=== PATIENT | female | born 1950 | race Caucasian/White ===

== ENCOUNTER 2021-02-25 09:40 | Inpatient (IN) ==
--- NOTE | 2021-02-25 10:06 | Emergency Department Note ---
Impression & Plan Fracture of head of humerus, Fall, Elevated INR ED Provider Note NAME: MALACHI POLO AGE: 70 SEX: F : 1950 ARRIVES VIA: Walk-In INFORMANT: Patient ED PROVIDER(S): Kike Bullock DO CHIEF COMPLAINT: fall L shoulder pain HPI: Patient is a 70-year-old female who presents to the ER following a mechanical fall where she slipped while carrying a water bucket over a down spout. She fell onto her left shoulder. She did hit her head. She denies any head pain or neck pain. No chest pain, belly pain, back pain, or any other extremity pain other than the left shoulder which is focal to the proximal humerus. Denies any tingling or numbness. She notes she did not pass out. No other exacerbating or remitting factors with the exception of movement of left shoulder makes pain significantly worse. ROS: See above HPI for pertinent positives & negatives. A total of 10 systems reviewed and were otherwise negative. PAST MEDICAL HISTORY:See Below PAST SURGICAL HISTORY:See Below FAMILY HISTORY:See Below SOCIAL HISTORY:See Below HOME MEDICATIONS:See Below ALLERGIES:See Below VITALS:See Below PHYSICAL EXAMINATION: GENERAL: alert, well appearing, well nourished, no distress, non-toxic HEAD: normal cephalic, atraumatic FACE: Small amount of bruising over the bridge of the nose with eyeglasses sitting on the right side of the bridge of the nose. EYE EXAM: normal conjunctiva, PERRL and EOM's grossly intact OROPHARYNX: no exudate, no erythema, lips, buccal mucosa, and tongue normal and mucous membranes are moist NECK: supple, no nuchal rigidity, no adenopathy, non-tender CHEST: stable to compression anteriorly and posteriorly LUNGS: clear to auscultation. Normal chest wall mechanics HEART: no murmurs, S1 normal and S2 normal ABDOMEN: abdomen soft, non-tender, normo-active bowel sounds, no masses, no rebound or guarding. PELVIS: stable to compression anteriorly and posteriorly BACK: Back is symmetrical on inspection and there is no deformity, no midline tenderness, no CVA tenderness. UPPER EXTREMITIES: No tenderness about the entire right upper extremity. Severe pain over the left proximal humerus. No tenderness throughout the left mid to distal humerus including elbow forearm wrist and digits. Radial pulse 2/4. Gross station intact. LOWER EXTREMITIES: full active and passive range of motion of all joints without tenderness to palpation NEURO EXAM: Normal sensorium, cranial nerves II-XII grossly intact, normal speech, no gross weakness of arms, no gross weakness of legs. GCS: 15. MEDICAL DECISION MAKING: Patient is a 70-year-old female who presents the ER following mechanical fall onto her left shoulder. She did hit her head. CT head was negative. Labs were obtained and showed a mild leukocytosis 14,000. INR was therapeutic at 2.0. BMP was unremarkable. Covid was negative. Discussed with Santos from [facility]. He recommended admission for OR tomorrow morning. X-rays of the left shoulder did show a fracture which will need repaired. Patient was updated bedside. She was given IV fluids and IV narcotics. Admitted to the hospital for further work-up. Triage Nursing notes reviewed. Limited review of prior medical records performed Vital Signs: reviewed and remarkable for htn Differential diagnosis: Differential diagnoses include major intracranial, cervical, spinal, thoracic, abdominal, pelvic and neurologic injury. Fracture, contusion, sprain, strain, laceration, abrasions included as well. ER treatment provided: See below Diagnostics interpreted by me: ECG: none Cardiac Monitoring: An order was placed for continuous cardiac monitoring. The monitor shows a rate of 70 with sinus rhythm. Laboratory studies: As stated above and show below. Imaging studies: X-rays left shoulder show left proximal humeral head fracture CT head was negative Consultation(s): Discussed with Santos from [facility] recommended admission in the OR in the morning Discussed with the hospitalist for further evaluation Procedures: none Critical Care: None Past Med/Surg History Medical History (Updated 02/25/21 @ 15:33 by Kike Bullock DO) Asthma Factor V Leiden GERD (gastroesophageal reflux disease) History of bilateral breast cancer History of DVT (deep vein thrombosis) History of pulmonary embolism HTN (hypertension) Hypothyroidism Raynauds disease Scleroderma Systemic sclerosis Thyroid cancer Surgical History (Updated 02/25/21 @ 13:56 by Madina Mckeon PA-C) History of bilateral salpingo-oophorectomy (BSO) History of breast biopsy History of cholecystectomy History of colonoscopy History of esophagogastroduodenoscopy (EGD) History of hernia repair History of partial mastectomy of left breast History of thyroidectomy History of tubal ligation Family History Mother No problems noted. Father Myocardial infarction, Onset Age: 62 Sister Ovarian cancer Social History (Updated 02/25/21 @ 13:39 by Madina Mckeon PA-C) Smoking Status: Never smoker Hx Alcohol Use: No Hx Substance Use: No Preferred Language: Kyrgyz Communication Ability: Effective marital status: Current Living Situation: Spouse and Family Current Living Situation Comment: and daughter Feels Safe at Home: Yes Allergies Allergies Allergy/AdvReac Type Severity Reaction Status Date / Time No Known Allergies Allergy Unverified 02/25/21 11:39 Home Meds Home Medications Medication Instructions Recorded Confirmed alendronate 70 mg PO SA 02/25/21 02/25/21 anastrozole [Arimidex] 1 mg PO DAILY 02/25/21 02/25/21 budesonide 1 mg INHALATION DAILY 02/25/21 02/25/21 levothyroxine 75 mcg PO DAILY 02/25/21 02/25/21 lisinopril 10 mg PO DAILY 02/25/21 02/25/21 nifedipine 60 mg PO DAILY 02/25/21 02/25/21 pantoprazole 20 mg PO DAILY 02/25/21 02/25/21 warfarin 7.5 mg PO WE 02/25/21 02/25/21 warfarin [Jantoven] 5 mg PO SUMOTUTHFRSA 02/25/21 02/25/21 Results & Data (ED) Vital Signs Vital Signs - 24 hr 02/25/21 09:44 02/25/21 10:21 02/25/21 10:23 Temperature 36.0 C L Temperature Source Temporal Artery Scan Pulse Rate 98 H 63 Pulse Rate [Right Finger] 60 Pulse Rate from SpO2 Sensor Pulse Rhythm [Right Finger] Regular Pulse Strength [Right Finger] Normal Respiratory Rate 20 24 20 Respiratory Effort / Characteristics Non-Labored Non-Labored Spontaneous Respiratory Depth Normal Normal Respiratory Pattern Regular Blood Pressure 146/83 H 104/54 L Blood Pressure [Right Arm] 104/54 L Blood Pressure Mean 104 70 Blood Pressure Mean [Right Arm] 70 Blood Pressure Position [Right Arm] Sitting Pulse Oximetry 99 95 95 Oxygen Delivery Method Room Air Room Air Room Air Sepsis Recent Fever Within 48 Hours No Sepsis New/Unexplained Change in Mental Status N/A Sepsis Action Taken by Nursing No Action Required 02/25/21 10:26 02/25/21 10:30 02/25/21 10:31 Temperature Temperature Source Pulse Rate 65 Pulse Rate [Right Finger] Pulse Rate from SpO2 Sensor 65 68 69 Pulse Rhythm [Right Finger] Pulse Strength [Right Finger] Respiratory Rate 19 Respiratory Effort / Characteristics Respiratory Depth Respiratory Pattern Blood Pressure 99/84 L Blood Pressure [Right Arm] Blood Pressure Mean 89 Blood Pressure Mean [Right Arm] Blood Pressure Position [Right Arm] Pulse Oximetry 94 93 96 Oxygen Delivery Method Sepsis Recent Fever Within 48 Hours Sepsis New/Unexplained Change in Mental Status Sepsis Action Taken by Nursing 02/25/21 10:40 02/25/21 11:00 02/25/21 11:08 Temperature Temperature Source Pulse Rate 68 69 67 Pulse Rate [Right Finger] Pulse Rate from SpO2 Sensor 69 Pulse Rhythm [Right Finger] Pulse Strength [Right Finger] Respiratory Rate 22 24 19 Respiratory Effort / Characteristics Respiratory Depth Respiratory Pattern Blood Pressure 105/53 L 105/53 L Blood Pressure [Right Arm] Blood Pressure Mean 70 70 Blood Pressure Mean [Right Arm] Blood Pressure Position [Right Arm] Pulse Oximetry 95 95 Oxygen Delivery Method Sepsis Recent Fever Within 48 Hours Sepsis New/Unexplained Change in Mental Status Sepsis Action Taken by Nursing 02/25/21 11:10 02/25/21 11:20 02/25/21 11:30 Temperature Temperature Source Pulse Rate 69 65 66 Pulse Rate [Right Finger] Pulse Rate from SpO2 Sensor 67 67 Pulse Rhythm [Right Finger] Pulse Strength [Right Finger] Respiratory Rate 18 17 20 Respiratory Effort / Characteristics Respiratory Depth Respiratory Pattern Blood Pressure 105/52 L Blood Pressure [Right Arm] Blood Pressure Mean 69 Blood Pressure Mean [Right Arm] Blood Pressure Position [Right Arm] Pulse Oximetry 96 96 96 Oxygen Delivery Method Sepsis Recent Fever Within 48 Hours Sepsis New/Unexplained Change in Mental Status Sepsis Action Taken by Nursing 02/25/21 11:31 02/25/21 11:40 02/25/21 11:50 Temperature Temperature Source Pulse Rate 66 64 66 Pulse Rate [Right Finger] Pulse Rate from SpO2 Sensor Pulse Rhythm [Right Finger] Pulse Strength [Right Finger] Respiratory Rate 16 22 21 Respiratory Effort / Characteristics Respiratory Depth Respiratory Pattern Blood Pressure Blood Pressure [Right Arm] Blood Pressure Mean Blood Pressure Mean [Right Arm] Blood Pressure Position [Right Arm] Pulse Oximetry 95 95 95 Oxygen Delivery Method Sepsis Recent Fever Within 48 Hours Sepsis New/Unexplained Change in Mental Status Sepsis Action Taken by Nursing 02/25/21 12:00 02/25/21 12:01 02/25/21 12:18 Temperature Temperature Source Pulse Rate 65 61 Pulse Rate [Right Finger] Pulse Rate from SpO2 Sensor 74 Pulse Rhythm [Right Finger] Pulse Strength [Right Finger] Respiratory Rate 21 20 16 Respiratory Effort / Characteristics Respiratory Depth Respiratory Pattern Blood Pressure 105/63 Blood Pressure [Right Arm] Blood Pressure Mean 77 Blood Pressure Mean [Right Arm] Blood Pressure Position [Right Arm] Pulse Oximetry 95 95 99 Oxygen Delivery Method Sepsis Recent Fever Within 48 Hours Sepsis New/Unexplained Change in Mental Status Sepsis Action Taken by Nursing 02/25/21 12:20 02/25/21 12:30 02/25/21 12:31 Temperature Temperature Source Pulse Rate Pulse Rate [Right Finger] Pulse Rate from SpO2 Sensor 75 68 69 Pulse Rhythm [Right Finger] Pulse Strength [Right Finger] Respiratory Rate 18 18 16 Respiratory Effort / Characteristics Respiratory Depth Respiratory Pattern Blood Pressure 105/56 L Blood Pressure [Right Arm] Blood Pressure Mean 72 Blood Pressure Mean [Right Arm] Blood Pressure Position [Right Arm] Pulse Oximetry 98 100 98 Oxygen Delivery Method Sepsis Recent Fever Within 48 Hours Sepsis New/Unexplained Change in Mental Status Sepsis Action Taken by Nursing 02/25/21 12:40 02/25/21 12:50 02/25/21 13:00 Temperature Temperature Source Pulse Rate 72 Pulse Rate [Right Finger] Pulse Rate from SpO2 Sensor 68 70 Pulse Rhythm [Right Finger] Pulse Strength [Right Finger] Respiratory Rate 16 18 Respiratory Effort / Characteristics Respiratory Depth Respiratory Pattern Blood Pressure 114/65 Blood Pressure [Right Arm] Blood Pressure Mean 81 Blood Pressure Mean [Right Arm] Blood Pressure Position [Right Arm] Pulse Oximetry 99 95 Oxygen Delivery Method Room Air Sepsis Recent Fever Within 48 Hours Sepsis New/Unexplained Change in Mental Status Sepsis Action Taken by Nursing 02/25/21 13:01 02/25/21 13:10 02/25/21 13:20 Temperature Temperature Source Pulse Rate 73 Pulse Rate [Right Finger] Pulse Rate from SpO2 Sensor 75 65 Pulse Rhythm [Right Finger] Pulse Strength [Right Finger] Respiratory Rate Respiratory Effort / Characteristics Respiratory Depth Respiratory Pattern Blood Pressure Blood Pressure [Right Arm] Blood Pressure Mean Blood Pressure Mean [Right Arm] Blood Pressure Position [Right Arm] Pulse Oximetry 98 94 86 L Oxygen Delivery Method Sepsis Recent Fever Within 48 Hours Sepsis New/Unexplained Change in Mental Status Sepsis Action Taken by Nursing 02/25/21 13:30 02/25/21 13:31 02/25/21 13:40 Temperature Temperature Source Pulse Rate 80 Pulse Rate [Right Finger] Pulse Rate from SpO2 Sensor 72 74 78 Pulse Rhythm [Right Finger] Pulse Strength [Right Finger] Respiratory Rate 26 H Respiratory Effort / Characteristics Respiratory Depth Respiratory Pattern Blood Pressure 110/60 Blood Pressure [Right Arm] Blood Pressure Mean 76 Blood Pressure Mean [Right Arm] Blood Pressure Position [Right Arm] Pulse Oximetry 96 98 98 Oxygen Delivery Method Sepsis Recent Fever Within 48 Hours Sepsis New/Unexplained Change in Mental Status Sepsis Action Taken by Nursing 02/25/21 13:50 02/25/21 14:00 02/25/21 14:01 Temperature Temperature Source Pulse Rate 76 74 76 Pulse Rate [Right Finger] Pulse Rate from SpO2 Sensor 75 72 75 Pulse Rhythm [Right Finger] Pulse Strength [Right Finger] Respiratory Rate 25 H 20 19 Respiratory Effort / Characteristics Respiratory Depth Respiratory Pattern Blood Pressure 120/75 Blood Pressure [Right Arm] Blood Pressure Mean 90 Blood Pressure Mean [Right Arm] Blood Pressure Position [Right Arm] Pulse Oximetry 98 100 96 Oxygen Delivery Method Sepsis Recent Fever Within 48 Hours Sepsis New/Unexplained Change in Mental Status Sepsis Action Taken by Nursing 02/25/21 14:10 02/25/21 14:20 02/25/21 14:30 Temperature Temperature Source Pulse Rate 76 83 81 Pulse Rate [Right Finger] Pulse Rate from SpO2 Sensor 78 81 82 Pulse Rhythm [Right Finger] Pulse Strength [Right Finger] Respiratory Rate 20 17 23 Respiratory Effort / Characteristics Respiratory Depth Respiratory Pattern Blood Pressure 130/76 Blood Pressure [Right Arm] Blood Pressure Mean 94 Blood Pressure Mean [Right Arm] Blood Pressure Position [Right Arm] Pulse Oximetry 98 99 97 Oxygen Delivery Method Sepsis Recent Fever Within 48 Hours Sepsis New/Unexplained Change in Mental Status Sepsis Action Taken by Nursing 02/25/21 14:31 02/25/21 14:40 02/25/21 14:47 Temperature Temperature Source Pulse Rate 79 79 76 Pulse Rate [Right Finger] Pulse Rate from SpO2 Sensor 79 78 76 Pulse Rhythm [Right Finger] Pulse Strength [Right Finger] Respiratory Rate 23 21 16 Respiratory Effort / Characteristics Respiratory Depth Respiratory Pattern Blood Pressure 123/70 Blood Pressure [Right Arm] Blood Pressure Mean 87 Blood Pressure Mean [Right Arm] Blood Pressure Position [Right Arm] Pulse Oximetry 100 99 97 Oxygen Delivery Method Sepsis Recent Fever Within 48 Hours Sepsis New/Unexplained Change in Mental Status Sepsis Action Taken by Nursing 02/25/21 14:48 02/25/21 14:50 02/25/21 15:00 Temperature Temperature Source Pulse Rate 77 Pulse Rate [Right Finger] 79 Pulse Rate from SpO2 Sensor 78 79 Pulse Rhythm [Right Finger] Pulse Strength [Right Finger] Respiratory Rate 16 Respiratory Effort / Characteristics Respiratory Depth Respiratory Pattern Blood Pressure 134/80 Blood Pressure [Right Arm] 123/70 Blood Pressure Mean 98 Blood Pressure Mean [Right Arm] 87 Blood Pressure Position [Right Arm] Pulse Oximetry 96 96 97 Oxygen Delivery Method Room Air Sepsis Recent Fever Within 48 Hours Sepsis New/Unexplained Change in Mental Status Sepsis Action Taken by Nursing 02/25/21 15:01 02/25/21 15:10 Temperature Temperature Source Pulse Rate Pulse Rate [Right Finger] Pulse Rate from SpO2 Sensor 80 86 Pulse Rhythm [Right Finger] Pulse Strength [Right Finger] Respiratory Rate Respiratory Effort / Characteristics Respiratory Depth Respiratory Pattern Blood Pressure 128/96 Blood Pressure [Right Arm] Blood Pressure Mean 106 Blood Pressure Mean [Right Arm] Blood Pressure Position [Right Arm] Pulse Oximetry 96 98 Oxygen Delivery Method Sepsis Recent Fever Within 48 Hours Sepsis New/Unexplained Change in Mental Status Sepsis Action Taken by Nursing Laboratory Data Result diagrams: 02/25/21 10:18 02/25/21 10:18 Lab Results 02/25/21 02/25/21 02/25/21 Range/Units 10:18 10:18 10:18 WBC 14.81 H (4.8-10.8) K/uL RBC 5.03 (4.2-5.4) M/uL Hgb 13.5 (12.0-16.0) g/dL Hct 41.7 (37-47) % MCV 82.9 (80-100) fL MCH 26.8 (25-34) pg MCHC 32.4 (32-36) g/dL RDW Std Deviation 44.7 (36.4-46.3) fL RDW Coeff of Mena 14.6 H (11.5-14.5) % Plt Count 340 (130-400) K/uL MPV 9.6 (7.4-10.4) fL Immature Gran % (Auto) 0.2 % Neut % (Auto) 87.2 % Lymph % (Auto) 5.9 % Carson % (Auto) 6.3 % Eos % (Auto) 0.3 % Baso % (Auto) 0.1 % Neut # (Auto) 12.91 H (1.4-6.5) K/uL Lymph # (Auto) 0.87 L (1.2-3.4) K/uL Carson # (Auto) 0.93 H (0.11-0.59) K/uL Eos # (Auto) 0.05 (0-0.5) K/uL Baso # (Auto) 0.02 (0-0.2) K/uL Immature Gran # (Auto) 0.03 H (0.00-0.02) K/uL PT 19.4 H (9.0-12.0) Seconds INR 2.0 H (0.9-1.1) Sodium 138 (136-145) mmol/L Potassium 3.9 (3.5-5.1) mmol/L Chloride 105 (98-107) mmol/L Carbon Dioxide 29 (21-32) mmol/L Anion Gap 5.0 (3-11) BUN 13 (7-18) mg/dl Creatinine 0.66 (0.6-1.2) mg/dl Est Cr Clr Drug Dosing 80.7 ml/min Est GFR ( Amer) 103.0 ml/min Est GFR (Non-Af Amer) 88.9 ml/min BUN/Creatinine Ratio 19.6 (10-20) Glucose 124 H (70-99) mg/dl Calcium 9.0 (8.5-10.1) mg/dl COVID-19 Eval Order SARS-CoV-2 (PCR) (Negative) 02/25/21 02/25/21 Range/Units 13:30 13:30 WBC (4.8-10.8) K/uL RBC (4.2-5.4) M/uL Hgb (12.0-16.0) g/dL Hct (37-47) % MCV (80-100) fL MCH (25-34) pg MCHC (32-36) g/dL RDW Std Deviation (36.4-46.3) fL RDW Coeff of Mena (11.5-14.5) % Plt Count (130-400) K/uL MPV (7.4-10.4) fL Immature Gran % (Auto) % Neut % (Auto) % Lymph % (Auto) % Carson % (Auto) % Eos % (Auto) % Baso % (Auto) % Neut # (Auto) (1.4-6.5) K/uL Lymph # (Auto) (1.2-3.4) K/uL Carson # (Auto) (0.11-0.59) K/uL Eos # (Auto) (0-0.5) K/uL Baso # (Auto) (0-0.2) K/uL Immature Gran # (Auto) (0.00-0.02) K/uL PT (9.0-12.0) Seconds INR (0.9-1.1) Sodium (136-145) mmol/L Potassium (3.5-5.1) mmol/L Chloride (98-107) mmol/L Carbon Dioxide (21-32) mmol/L Anion Gap (3-11) BUN (7-18) mg/dl Creatinine (0.6-1.2) mg/dl Est Cr Clr Drug Dosing ml/min Est GFR ( Amer) ml/min Est GFR (Non-Af Amer) ml/min BUN/Creatinine Ratio (10-20) Glucose (70-99) mg/dl Calcium (8.5-10.1) mg/dl COVID-19 Eval Order Covid19 at [facility] SARS-CoV-2 (PCR) NEGATIVE (Negative) Administered Medications Discontinued Medications Phytonadione 5 mg/ Sodium (Chloride) 50.5 mls @ 101 mls/hr IV ONE ONE Stop: 02/25/21 14:51 Last Infusion: 02/25/21 15:19 Dose: 0 mls/hr Documented by: [id number] Admin: 02/25/21 14:48 Dose: 101 mls/hr Documented by: [id number] Morphine Sulfate (Morphine Sulfate 4 Mg/Ml 1 Ml Carp\Vial) 4 mg IV NOW STA Stop: 02/25/21 10:11 Last Admin: 02/25/21 10:16 Dose: 4 mg Documented by: [id number] Ondansetron HCl (Ondansetron Inj 2 Mg/Ml 2 Ml Vial) 4 mg IV NOW STA Stop: 02/25/21 10:11 Last Admin: 02/25/21 10:16 Dose: 4 mg Documented by: [id number] Ondansetron HCl (Ondansetron Inj 2 Mg/Ml 2 Ml Vial) 4 mg IV NOW STA Stop: 02/25/21 11:29 Last Admin: 02/25/21 11:33 Dose: 4 mg Documented by: [id number] Imaging Data Radiologist's Impression: Head CT 02/25/21 10:01 CT head/brain wo con CLINICAL HISTORY: fall COMPARISON STUDY: No previous studies for comparison. TECHNIQUE: Axial CT of the brain is performed from the vertex to the skull base. IV contrast was not administered for this examination. A dose lowering technique was utilized adhering to the principles of ALARA. CT DOSE: 1363.67 mGy.cm FINDINGS: No acute intracranial hemorrhage, no midline shift or space occupying lesions are seen. Sánchez-white matter differentiation is preserved. Evaluation is slightly limited due to beam hardening and mild motion artifact. Diffuse atrophic changes of brain parenchyma are seen. Ventricles are midline, of normal size and configuration. There is lacunar infarct/prominent perivascular space is seen within left basal ganglia. There is no acute depressed skull fractures are seen. Visualized paranasal sinuses and mastoid air cells are patent and well-aerated. IMPRESSION: 1. No acute intracranial hemorrhage, no midline shift or space occupying lesions. 2. Prominent perivascular space or lacunar infarct within left basal ganglia. 3. Limited exam due to beam hardening and motion artifact ACT 112: Negative or not required by law. The above report was generated using voice recognition software. It may contain grammatical, syntax or spelling errors. Electronically signed by: Ashely Butcher DO 02/25/2021 11:11 AM Shoulder X-Ray 02/25/21 10:01 XR shoulder LT min 2V routine CLINICAL HISTORY: Left shoulder pain. COMPARISON: None FINDINGS: There is an acute displaced left humeral neck fracture which extends into the humeral head and involves the greater tuberosity. The fracture is displaced 1.7 cm. Fracture is significantly comminuted. Alignment of the left glenohumeral joint is anatomic. The distal component is displaced anteriorly and medially. Alignment of the left acromioclavicular joint is anatomic. IMPRESSION: Acute displaced comminuted left humeral neck fracture which extends into the humeral head, as described above. ACT 112: Negative or not required by law. Electronically signed by: Parker Johnson M.D. 02/25/2021 10:39 AM Chest X-Ray 02/25/21 13:05 XR chest 1V portable CLINICAL HISTORY: pre op COMPARISON STUDY: No previous studies for comparison. FINDINGS: No pneumothorax. No pleural effusion. Small linear density seen at the left base and could represent small atelectasis or scarring. Diffuse reticular prominence of pulmonary interstitium is seen bilaterally. Cardiomediastinal silhouette is within normal limits in size. No significant pulmonary vascular congestion.. Aorta is calcified. Osseous structures: Osteopenia. Displaced fracture of the left proximal humerus. Degenerative changes of the spine. IMPRESSION: 1. Minimal atelectasis/scarring at the left base. 2. Atherosclerosis. ACT 112: Negative or not required by law. The above report was generated using voice recognition software. It may contain grammatical, syntax or spelling errors. Electronically signed by: Ashely Butcher DO 02/25/2021 1:33 PM Discharge Plan Visit Data Chief Complaint: Fall Stated Complaint: L SHOULDER PAIN, FELL ED Provider: Kike Bullock Discharge Problem: Fracture of head of humerus, Fall, Elevated INR Forms Stand Alone Forms: My [facility] Prescriptions Prescriptions: No Action alendronate 70 mg tablet 70 mg PO SA RF: 0 pantoprazole 20 mg tablet,delayed release (DR/EC) 20 mg PO DAILY RF: 0 levothyroxine 75 mcg tablet 75 mcg PO DAILY RF: 0 lisinopril 10 mg tablet 10 mg PO DAILY RF: 0 warfarin [Jantoven] 5 mg tablet 5 mg PO SUMOTUTHFRSA RF: 0 nifedipine 60 mg tablet extended release 60 mg PO DAILY RF: 0 budesonide 1 mg/2 mL suspension for nebulization 1 mg inhalation DAILY RF: 0 anastrozole [Arimidex] 1 mg Tablet 1 mg PO DAILY RF: 0 warfarin 5 mg Tablet 7.5 mg PO WE RF: 0 Discharge Problem: Fracture of head of humerus Qualifiers: Encounter type: initial encounter Fracture type: closed Laterality: left Qualified Code(s): S42.292A - Other displaced fracture of upper end of left h umerus, initial encounter for closed fracture Fall Qualifiers: Encounter type: initial encounter Qualified Code(s): W19.XXXA - Unspecified fall, initial encounter
[2021-02-25] MEDS ORDERED: ONDANSETRON INJ 2 MG/ML 2 ML VIAL IV STA ×2 (10:10→11:28)
[2021-02-25] MEDS ORDERED: MoRPHine SULFATE 4 MG/ML 1 ML CARP\\VIAL IV STA (10:10)
[2021-02-25 10:29] LABS: Basophils # (auto) 0.02 K/uL (0-0.2); Basophils % (auto) 0.1 %; Eosinophils # (auto) 0.05 K/uL (0-0.5); Eosinophils % (auto) 0.3 %; Hematocrit (blood only) 41.7 % (37-47); Hemoglobin 13.5 g/dL (12.0-16.0); Immature Granulocytes # (auto) 0.03 K/uL (0.00-0.02); Immature Granulocytes % (auto) 0.2 %; Lymphocytes # (auto) 0.87 K/uL (1.2-3.4); Lymphocytes % (auto) 5.9 %; Mean Corpuscular Hemoglobin 26.8 pg (25-34); Mean Corpuscular Hgb Conc 32.4 g/dL (32-36); Mean Corpuscular Volume 82.9 fL (80-100); Mean Platelet Volume 9.6 fL (7.4-10.4); Monocytes # (auto) 0.93 K/uL (0.11-0.59); Monocytes % (auto) 6.3 %; Neutrophils # (auto) 12.91 K/uL (1.4-6.5); Neutrophils % (auto) 87.2 %; Platelet Count 340 K/uL (130-400); RDW Coefficient of Variation 14.6 % (11.5-14.5); RDW Standard Deviation 44.7 fL (36.4-46.3); Red Blood Count 5.03 M/uL (4.2-5.4); White Blood Count 14.81 K/uL (4.8-10.8)
[2021-02-25 10:37] LABS: Prothrombin Time 19.4 Seconds (9.0-12.0)
--- NOTE | 2021-02-25 10:40 | XRay Report ---
XR shoulder LT min 2V routine CLINICAL HISTORY: Left shoulder pain. COMPARISON: None FINDINGS: There is an acute displaced left humeral neck fracture which extends into the humeral head and involves the greater tuberosity. The fracture is displaced 1.7 cm. Fracture is significantly com minuted. Alignment of the left glenohumeral joint is anatomic. The distal component is displaced ante riorly and medially. Alignment of the left acromioclavicular joint is anatomic. IMPRESSION: Acute displaced comminuted left humeral neck fracture which extends into the humeral head , as described above. ACT 112: Negative or not required by law. Electronically signed by: Parker Johnson M.D. 02/25/2021 10:39 AM
[2021-02-25 10:47] LABS: BUN Creatinine Ratio 19.6 (10-20); Creatinine Clr Calc Pharmacy 80.7 ml/min; Est GFR (Non-African American) 88.9 ml/min; Potassium 3.9 mmol/L (3.5-5.1)
--- NOTE | 2021-02-25 11:12 | CT Scan Report ---
CT head/brain wo con CLINICAL HISTORY: fall COMPARISON STUDY: No previous studies for comparison. TECHNIQUE: Axial CT of the brain is performed from the vertex to the skull base. IV contrast was not administered for this examination. A dose lowering technique was utilized adhering to the principles of ALARA. CT DOSE: 1363.67 mGy.cm FINDINGS: No acute intracranial hemorrhage, no midline shift or space occupying lesions are seen. Sánchez-white matter differentiation is preserved. Evaluation is slightly limited due to beam hardening and mild motion artifact. Diffuse atrophic changes of brain parenchyma are seen. Ventricles are midline, of normal size and configuration. There is lacunar infarct/prominent perivascular space is seen within left basal ganglia. There is no acute depressed skull fractures are seen. Visualized paranasal sinuses and mastoid air ce lls are patent and well-aerated. IMPRESSION: 1. No acute intracranial hemorrhage, no midline shift or space occupying lesions. 2. Prominent perivascular space or lacunar infarct within left basal ganglia. 3. Limited exam due to beam hardening and motion artifact ACT 112: Negative or not required by law. The above report was generated using voice recognition software. It may contain grammatical, syntax o r spelling errors. Electronically signed by: Ashely Butcher DO 02/25/2021 11:11 AM
--- NOTE | 2021-02-25 13:35 | XRay Report ---
XR chest 1V portable CLINICAL HISTORY: pre op COMPARISON STUDY: No previous studies for comparison. FINDINGS: No pneumothorax. No pleural effusion. Small linear density seen at the left base and could represent small atelectasis or scarring. Diffuse reticular prominence of pulmonary interstitium is seen bilaterally. Cardiomediastinal silhouette is within normal limits in size. No significant pulmonary vascular congestion.. Aorta is calcified. Osseous structures: Osteopenia. Displaced fracture of the left proximal humerus. Degenerative change s of the spine. IMPRESSION: 1. Minimal atelectasis/scarring at the left base. 2. Atherosclerosis. ACT 112: Negative or not required by law. The above report was generated using voice recognition software. It may contain grammatical, syntax o r spelling errors. Electronically signed by: Ashely Butcher DO 02/25/2021 1:33 PM
--- NOTE | 2021-02-25 13:43 | History & Physical Report ---
Date of Service February 25, 2021 Assessment & Plan (1) Fracture of neck of left humerus: (2) Left shoulder pain: This is a 70-year-old female who has significant past medical history of scleroderma, aortic valve stenosis, factor V Leiden heterozygote, asthma, history of bilateral breast cancer, GERD, history of GI bleed, hypothyroidism who presents ED after sustaining mechanical fall and subsequent left shoulder pain prior to arrival. Acute displaced comminuted left humeral neck fracture which extends into the humeral head admit to med/surg consult [facility] NPO after midnight INR 2.0 - hold warfarin, give 5mg IV vitamin K IV morphine severe pain, po percocet for moderate pain schedule APAP ICE QID, NWB to LUE (3) Asthma: no acute exac continue budesonide prn albuterol (4) Systemic sclerosis: continue nifedipine (5) Factor V Leiden: hx of PE in ~ 2002, unprovoked heterozygote on chronic coumadin, INR 2.0 today (6) HTN (hypertension): BP on lower side in ED continue nifedipine (on for scleroderma) hold lisinopril for now, reassess and resume as able (7) Hypothyroidism: continue levothyroxine (8) History of bilateral breast cancer: continue arimidex therapy (9) DVT prophylaxis: hold warfarin, VIT K ordered will need chemical prophylaxis post op scd/teds Dispo: med/surg PCP: Dr. Clay FULL CODE Pt was seen and examined in collaboration with Dr. Johnson, please see addendum History of Present Illness Chief Complaint: Mechanical fall prior to arrival with L shoulder pain Primary Care Provider: Gayle Clay This is a 70-year-old female who has significant past medical history of scleroderma, aortic valve stenosis, factor V Leiden heterozygote, asthma, history of bilateral breast cancer, GERD, history of GI bleed, hypothyroidism who presents ED after sustaining mechanical fall and subsequent left shoulder pain prior to arrival. Daughter is at bedside. She states she was outside going to feed cats when she was walking in the wet grass, slipped and fell on left shoulder. She states, "everything happened so fast and I could not get up." Her forester silviculture's brought her to the ED. She complains of significant left shoulder pain. She denies any prior falls other than today. Typically she is very active and fosters many cats. She does have history of asthma and therefore occasionally get shortness of breath but denies any chest pain or BUSCH climbing one flight of stairs. She is fully vaccinated for COVID-19. Prior to today she was in her normal state of health. She is history of breast cancer which is since in remission and she takes Arimidex daily. She denies any fever, chills, sweats, lightheadedness, dizziness, syncope, chest pain, shortness breath, cough, URI symptoms, nausea, vomiting, abdominal pain, change in bowel or urinary habits. Typically she ambulates without assist device. Currently pain is 7 out of 10. She has a history of factor V Leiden and is currently on chronic Coumadin secondary to history of PE while on vacation in 2002. She has had no further recurrence. In ED patient remained hemodynamically stable. Imaging revealed a acute, comminuted left humeral neck fracture. Allergies Allergy/AdvReac Type Severity Reaction Status Date / Time No Known Allergies Allergy Unverified 02/25/21 11:39 Home Medications Medication Instructions Recorded Confirmed Type alendronate 70 mg PO SA 02/25/21 02/25/21 History anastrozole [Arimidex] 1 mg PO DAILY 02/25/21 02/25/21 History budesonide 1 mg INHALATION DAILY 02/25/21 02/25/21 History levothyroxine 75 mcg PO DAILY 02/25/21 02/25/21 History lisinopril 10 mg PO DAILY 02/25/21 02/25/21 History nifedipine 60 mg PO DAILY 02/25/21 02/25/21 History pantoprazole 20 mg PO DAILY 02/25/21 02/25/21 History warfarin 7.5 mg PO WE 02/25/21 02/25/21 History warfarin [Jantoven] 5 mg PO SUMOTUTHFRSA 02/25/21 02/25/21 History Past Med/Surg History Medical History Asthma Factor V Leiden GERD (gastroesophageal reflux disease) History of bilateral breast cancer History of DVT (deep vein thrombosis) History of pulmonary embolism HTN (hypertension) Hypothyroidism Raynauds disease Scleroderma Systemic sclerosis Thyroid cancer Surgical History History of bilateral salpingo-oophorectomy (BSO) History of breast biopsy History of cholecystectomy History of colonoscopy History of esophagogastroduodenoscopy (EGD) History of hernia repair History of partial mastectomy of left breast History of thyroidectomy History of tubal ligation Family History Mother No problems noted. Father Myocardial infarction, Onset Age: 62 Sister Ovarian cancer Social History Smoking Status: Never smoker Hx Alcohol Use: No Hx Substance Use: No Preferred Language: Turkmen Communication Ability: Effective Table Worker Required: No Beliefs That Will Affect Care: None marital status: Current Living Situation: Spouse and Family Current Living Situation Comment: and daughter Other Information That Helps Us Care for You: No Feels Safe at Home: Yes Safety Concerns: Feels Safe At This Time Assistive Devices: Denture - Upper, Denture - Lower and Glasses Review of Systems Review of Systems: All systems reviewed & are unremarkable except as noted in HPI & below Physical Exam Physical Exam: Constitutional: WD/WN, F, vitals as above, NAD, sitting up in bed, pleasant, conversing easily Head: Normocephalic, Atraumatic Eyes: PERRL, conjunctivae normal, anicteric sclerae ENMT: external ear and nose normal, oropharynx normal Neck: trachea midline, no thyromegaly normal visual inspection Respiratory: normal respiratory effort, lungs clear to auscultation, no wheeze, rales, rhonchi. Normal insp/exp effort, no accessory muscle use Cardiovascular: RRR, 2/6 AILYN pansystolic, best RUSB, no edema Vessels: no JVD or carotid bruit Chest: normal inspection of chest Abdomen: normal bowel sounds, soft, nontender, no hepatosplenomegaly Musculoskeletal: no cyanosis or clubbing, AROM x 3, LUE not tested given fracture but NVI distally Skin: no rashes, warm and dry normal turgor Neurologic: PERRL, EOMI, accommodation nl, no face palsy, no dysarthria CN's II-XI intact bilaterally and moves all extremities Psychiatric: A+Ox3, euthymic affect Lymphatic: no cervical or axillary lymphadenopathy : deferred Results & Data Results & Data (MN) Vital Signs (Past 12 Hours) Vital Signs Temp Pulse Pulse Resp BP BP Pulse Ox 02/25/21 12:01 61 20 95 02/25/21 12:00 65 21 105/63 95 02/25/21 11:50 66 21 95 02/25/21 11:40 64 22 95 02/25/21 11:31 66 16 95 02/25/21 11:30 66 20 105/52 L 96 02/25/21 11:20 65 17 96 02/25/21 11:10 69 18 96 02/25/21 11:08 67 19 105/53 L 02/25/21 11:00 69 24 105/53 L 95 02/25/21 10:40 68 22 95 02/25/21 10:31 99/84 L 96 02/25/21 10:30 93 02/25/21 10:26 65 19 94 02/25/21 10:23 60 20 104/54 L 95 02/25/21 10:21 63 24 104/54 L 95 02/25/21 09:44 36.0 C L 98 H 20 146/83 H [address] 02/25/21 10:01 CT head/brain wo con CLINICAL HISTORY: fall COMPARISON STUDY: No previous studies for comparison. TECHNIQUE: Axial CT of the brain is performed from the vertex to the skull base. IV contrast was not administered for this examination. A dose lowering technique was utilized adhering to the principles of ALARA. CT DOSE: 1363.67 mGy.cm FINDINGS: No acute intracranial hemorrhage, no midline shift or space occupying lesions are seen. Sánchez-white matter differentiation is preserved. Evaluation is slightly limited due to beam hardening and mild motion artifact. Diffuse atrophic changes of brain parenchyma are seen. Ventricles are midline, of normal size and configuration. There is lacunar infarct/prominent perivascular space is seen within left basal ganglia. There is no acute depressed skull fractures are seen. Visualized paranasal sinuses and mastoid air cells are patent and well-aerated. IMPRESSION: 1. No acute intracranial hemorrhage, no midline shift or space occupying lesions. 2. Prominent perivascular space or lacunar infarct within left basal ganglia. 3. Limited exam due to beam hardening and motion artifact ACT 112: Negative or not required by law. The above report was generated using voice recognition software. It may contain grammatical, syntax or spelling errors. Electronically signed by: Ashely Butcher DO 02/25/2021 11:11 AM Shoulder X-Ray 02/25/21 10:01 XR shoulder LT min 2V routine CLINICAL HISTORY: Left shoulder pain. COMPARISON: None FINDINGS: There is an acute displaced left humeral neck fracture which extends into the humeral head and involves the greater tuberosity. The fracture is displaced 1.7 cm. Fracture is significantly comminuted. Alignment of the left glenohumeral joint is anatomic. The distal component is displaced anteriorly and medially. Alignment of the left acromioclavicular joint is anatomic. IMPRESSION: Acute displaced comminuted left humeral neck fracture which extends into the humeral head, as described above. ACT 112: Negative or not required by law. Electronically signed by: Parker Johnson M.D. 02/25/2021 10:39 AM Chest X-Ray 02/25/21 13:05 XR chest 1V portable CLINICAL HISTORY: pre op COMPARISON STUDY: No previous studies for comparison. FINDINGS: No pneumothorax. No pleural effusion. Small linear density seen at the left base and could represent small atelectasis or scarring. Diffuse reticular prominence of pulmonary interstitium is seen bilaterally. Cardiomediastinal silhouette is within normal limits in size. No significant pulmonary vascular congestion.. Aorta is calcified. Osseous structures: Osteopenia. Displaced fracture of the left proximal humerus. Degenerative changes of the spine. IMPRESSION: 1. Minimal atelectasis/scarring at the left base. 2. Atherosclerosis. ACT 112: Negative or not required by law. The above report was generated using voice recognition software. It may contain grammatical, syntax or spelling errors. Electronically signed by: Ashely Butcher DO 02/25/2021 1:33 PM Medications Administered Medication List Discontinued Medications Morphine Sulfate (Morphine Sulfate 4 Mg/Ml 1 Ml Carp\\Vial) 4 mg IV NOW STA Stop: 02/25/21 10:11 Last Admin: 02/25/21 10:16 Dose: 4 mg Documented by: [id number] Ondansetron HCl (Ondansetron Inj 2 Mg/Ml 2 Ml Vial) 4 mg IV NOW STA Stop: 02/25/21 10:11 Last Admin: 02/25/21 10:16 Dose: 4 mg Documented by: [id number] Ondansetron HCl (Ondansetron Inj 2 Mg/Ml 2 Ml Vial) 4 mg IV NOW STA Stop: 02/25/21 11:29 Last Admin: 02/25/21 11:33 Dose: 4 mg Documented by: [id number] COVID-19 Results Results COVID-19 Adm Lab Results: RBC 5.03 M/uL (4.2-5.4) 02/25/21 WBC 14.81 K/uL (4.8-10.8) H 02/25/21 Hgb 13.5 g/dL (12.0-16.0) 02/25/21 Hct 41.7 % (37-47) 02/25/21 Plt Count 340 K/uL (130-400) 02/25/21 Neutrophils (%) (Auto) 87.2 % 02/25/21 Lymphocytes (%) (Auto) 5.9 % 02/25/21 Monocytes # (Auto) 0.93 K/uL (0.11-0.59) H 02/25/21 Eosinophils # (Auto) 0.05 K/uL (0-0.5) 02/25/21 Immature Granulocyte % (Auto) 0.2 % 02/25/21 Neutrophils # (Auto) 12.91 K/uL (1.4-6.5) H 02/25/21 Lymphocytes # (Auto) 0.87 K/uL (1.2-3.4) L 02/25/21 Monocytes # (Auto) 0.93 K/uL (0.11-0.59) H 02/25/21 Eosinophils # (Auto) 0.05 K/uL (0-0.5) 02/25/21 Basophils # (Auto) 0.02 K/uL (0-0.2) 02/25/21 Immature Granulocyte # (Auto) 0.03 K/uL (0.00-0.02) H 02/25/21 Na 138 mmol/L (136-145) 02/25/21 K 3.9 mmol/L (3.5-5.1) 02/25/21 Cl 105 mmol/L (98-107) 02/25/21 CO2 29 mmol/L (21-32) 02/25/21 Anion Gap 5.0 (3-11) 02/25/21 BUN 13 mg/dl (7-18) 02/25/21 Creatinine 0.66 mg/dl (0.6-1.2) 02/25/21 BUN/Creatinine Ratio 19.6 (10-20) 02/25/21 Glucose Level 124 mg/dl (70-99) H 02/25/21 Ca 9.0 mg/dl (8.5-10.1) 02/25/21 INR 2.0 (0.9-1.1) H 02/25/21 COVID-19 PCR NEGATIVE (Negative) 02/25/21 Chest X-Ray 02/25/21 Code Status & VTE Plan Code Status Full Code VTE Prophylaxis Plan VTE Prophylaxis will be ordered: Yes Supervising Physician Co-Signing Physician Notes Attending addendum: Patient seen and examined care coordinated with Madina Qureshi PA-C: This is a 70-year-old female, sustained a mechanical fall, x-ray shows left shoulder fracture Appreciate input from orthopedics, patient will need surgical repair of fracture. Acceptable risk to proceed for surgery. History of PE was on Coumadin , vitK given to lower coagulopathy for orthopedics surgery please refer for further documentation by Madina [email or web address] for discussion of other medical issues Elisha Johnson MD
[2021-02-25] MEDS ORDERED: PHYTONADIONE 5 MG in SODIUM CHLORIDE 0.9% 50 ML IV ONE (14:22)
--- NOTE | 2021-02-25 15:30 | Orthopedic Consultation ---
Date of Consultation February 25, 2021 Assessment & Plan (1) Fracture of head of humerus: Left displaced proximal humerus fracture. X-rays reviewed. Case discussed with Dr. Cole. The humeral head appears to be split. Plan for CT of the left shoulder for confirmation. If the head is split, patient will likely be a candidate for a reverse total shoulder arthroplasty. With her tenderness in the left elbow, plan for plain films of the left elbow as well. I have discussed both ORIF and shoulder replacement with the patient who understands. CT scan will be reviewed once done. Patient's INR is 2.0 at this time and will need to be 1.3 or less. Patient being admitted to telemetry for monitoring. Ice to the left shoulder. Continue sling at this time. Plan for surgery tomorrow if patient is medically stable and INR is at a respectable level. History of Present Illness Reason for Consultation: Left displaced proximal humerus fracture History of Present Illness Patient is a 70-year-old white female with pmh of past medical history of scleroderma, aortic valve stenosis, factor V Leiden heterozygote, asthma, history of bilateral breast cancer, GERD, history of GI bleed, hypothyroidism, who states that this morning was outside walking in her yard. She was taking care of some stray cats feeding them etc. She states that the grass was wet and she ended up slipping on the grass and falling very quickly onto her left shoulder. She states she did bump her head but did not lose consciousness. He denies any shortness of breath, chest pain, lightheadedness prior to or after the fall. She states after the fall, she had moderate pain in her left shoulder that radiated down to her elbow. She had difficulty moving her shoulder and was brought to the emergency room. She was seen by the staff and x-rays were taken. It was found that she had a proximal humerus fracture that was displaced on the left humerus. After discussing the case with [facility], she was admitted for further care and we have been asked to take care of her left proximal humerus fracture. Allergies Allergy/AdvReac Type Severity Reaction Status Date / Time No Known Allergies Allergy Unverified 02/25/21 11:39 Home Medications Medication Instructions Recorded Confirmed Type alendronate 70 mg PO SA 02/25/21 02/25/21 History anastrozole [Arimidex] 1 mg PO DAILY 02/25/21 02/25/21 History budesonide 1 mg INHALATION DAILY 02/25/21 02/25/21 History levothyroxine 75 mcg PO DAILY 02/25/21 02/25/21 History lisinopril 10 mg PO DAILY 02/25/21 02/25/21 History nifedipine 60 mg PO DAILY 02/25/21 02/25/21 History pantoprazole 20 mg PO DAILY 02/25/21 02/25/21 History warfarin 7.5 mg PO WE 02/25/21 02/25/21 History warfarin [Jantoven] 5 mg PO SUMOTUTHFRSA 02/25/21 02/25/21 History Patient History Medical History Asthma Factor V Leiden GERD (gastroesophageal reflux disease) History of bilateral breast cancer History of DVT (deep vein thrombosis) History of pulmonary embolism HTN (hypertension) Hypothyroidism Raynauds disease Scleroderma Systemic sclerosis Thyroid cancer Surgical History History of bilateral salpingo-oophorectomy (BSO) History of breast biopsy History of cholecystectomy History of colonoscopy History of esophagogastroduodenoscopy (EGD) History of hernia repair History of partial mastectomy of left breast History of thyroidectomy History of tubal ligation Family History Mother No problems noted. Father Myocardial infarction, Onset Age: 62 Sister Ovarian cancer Social History Smoking Status: Never smoker Hx Alcohol Use: No Hx Substance Use: No Preferred Language: Tajik Communication Ability: Effective marital status: Current Living Situation: Spouse and Family Current Living Situation Comment: and daughter Feels Safe at Home: Yes Review of Systems Review of Systems: All systems reviewed & are unremarkable except as noted in HPI & below Physical Exam Physical Exam: Patient is a 70-year-old white female who appears her stated age. No acute distress. Pleasant and cooperative. Alert and oriented x3. On examination of her left upper extremity, she has a sling placed. This is left in place during the exam. Left shoulder has swelling but no overt ecchymosis at this time. She is tender on palpation. No attempts of range of motion were done secondary to displaced left proximal humerus fracture. Palpation of the left elbow does not reveal any severe pain but the patient does complain of some pain on palpation. No step-offs or dislocations are appreciated at this time. I can take her through gentle range of motion of the left elbow which she states causes her some mild discomfort which also causes some discomfort in her shoulder. No overt pain with supination or pronation. Left wrist is nontender on palpation and range of motion is within normal limits. She is moving her fingers well however she states she has some decreased sensation which she states is typical for her with her history of scleroderma. She states that this can occur off and on. Capillary refill is less than 2 seconds. She denies injury of her right upper extremity and is nontender at the right shoulder elbow and wrist. No injuries of the lower extremities noted at this time. He denies pain in the bilateral hips, knees, ankles. Range of motion within normal limits. She denies any pain on palpation of her neck and has good range of motion. She denies any thoracic and/or lumbar discomfort. There is no gross motor or sensory loss seen at this time. Results & Data ([facility]) Vital Signs (Past 12 Hours) Vital Signs Temp Pulse Pulse Resp BP BP Pulse Ox 02/25/21 15:10 128/96 98 02/25/21 15:01 96 02/25/21 15:00 134/80 97 02/25/21 14:50 77 96 02/25/21 14:48 79 16 123/70 96 02/25/21 14:47 76 16 123/70 97 02/25/21 14:40 79 21 99 02/25/21 14:31 79 23 100 02/25/21 14:30 81 23 130/76 97 02/25/21 14:20 83 17 99 02/25/21 14:10 76 20 98 02/25/21 14:01 76 19 96 02/25/21 14:00 74 20 120/75 100 02/25/21 13:50 76 25 H 98 02/25/21 13:40 80 26 H 98 02/25/21 13:31 98 02/25/21 13:30 110/60 96 02/25/21 13:20 86 L 02/25/21 13:10 94 02/25/21 13:01 73 98 02/25/21 13:00 72 114/65 02/25/21 12:50 18 95 02/25/21 12:40 16 99 02/25/21 12:31 16 98 02/25/21 12:30 18 105/56 L 100 02/25/21 12:20 18 98 02/25/21 12:18 16 99 02/25/21 12:01 61 20 95 02/25/21 12:00 65 21 105/63 95 02/25/21 11:50 66 21 95 02/25/21 11:40 64 22 95 02/25/21 11:31 66 16 95 02/25/21 11:30 66 20 105/52 L 96 02/25/21 11:20 65 17 96 02/25/21 11:10 69 18 96 02/25/21 11:08 67 19 105/53 L 02/25/21 11:00 69 24 105/53 L 95 02/25/21 10:40 68 22 95 02/25/21 10:31 99/84 L 96 02/25/21 10:30 93 02/25/21 10:26 65 19 94 02/25/21 10:23 60 20 104/54 L 95 02/25/21 10:21 63 24 104/54 L 95 02/25/21 09:44 36.0 C L 98 H 20 146/83 H 99 Laboratory Results Laboratory Results WBC 14.81 K/uL (4.8-10.8) H 02/25/21 10:18 RBC 5.03 M/uL (4.2-5.4) 02/25/21 10:18 Hgb 13.5 g/dL (12.0-16.0) 02/25/21 10:18 Hct 41.7 % (37-47) 02/25/21 10:18 MCV 82.9 fL (80-100) 02/25/21 10:18 MCH 26.8 pg (25-34) 02/25/21 10:18 MCHC 32.4 g/dL (32-36) 02/25/21 10:18 RDW Std Deviation 44.7 fL (36.4-46.3) 02/25/21 10:18 RDW Coeff of Mena 14.6 % (11.5-14.5) H 02/25/21 10:18 Plt Count 340 K/uL (130-400) 02/25/21 10:18 MPV 9.6 fL (7.4-10.4) 02/25/21 10:18 Immature Gran % (Auto) 0.2 % 02/25/21 10:18 Neut % (Auto) 87.2 % 02/25/21 10:18 Lymph % (Auto) 5.9 % 02/25/21 10:18 Estill % (Auto) 6.3 % 02/25/21 10:18 Eos % (Auto) 0.3 % 02/25/21 10:18 Baso % (Auto) 0.1 % 02/25/21 10:18 Neut # (Auto) 12.91 K/uL (1.4-6.5) H 02/25/21 10:18 Lymph # (Auto) 0.87 K/uL (1.2-3.4) L 02/25/21 10:18 Estill # (Auto) 0.93 K/uL (0.11-0.59) H 02/25/21 10:18 Eos # (Auto) 0.05 K/uL (0-0.5) 02/25/21 10:18 Baso # (Auto) 0.02 K/uL (0-0.2) 02/25/21 10:18 Immature Gran # (Auto) 0.03 K/uL (0.00-0.02) H 02/25/21 10:18 PT 19.4 Seconds (9.0-12.0) H 02/25/21 10:18 INR 2.0 (0.9-1.1) H 02/25/21 10:18 Sodium 138 mmol/L (136-145) 02/25/21 10:18 Potassium 3.9 mmol/L (3.5-5.1) 02/25/21 10:18 Chloride 105 mmol/L (98-107) 02/25/21 10:18 Carbon Dioxide 29 mmol/L (21-32) 02/25/21 10:18 Anion Gap 5.0 (3-11) 02/25/21 10:18 BUN 13 mg/dl (7-18) 02/25/21 10:18 Creatinine 0.66 mg/dl (0.6-1.2) 02/25/21 10:18 Est Cr Clr Drug Dosing 80.7 ml/min 02/25/21 10:18 Est GFR ( Amer) 103.0 ml/min 02/25/21 10:18 Est GFR (Non-Af Amer) 88.9 ml/min 02/25/21 10:18 BUN/Creatinine Ratio 19.6 (10-20) 02/25/21 10:18 Glucose 124 mg/dl (70-99) H 02/25/21 10:18 Calcium 9.0 mg/dl (8.5-10.1) 02/25/21 10:18 COVID-19 Eval Order Covid19 at [facility] 02/25/21 13:30 SARS-CoV-2 (PCR) NEGATIVE (Negative) 02/25/21 13:[address] 02/25/21 10:01 CT head/brain wo con CLINICAL HISTORY: fall COMPARISON STUDY: No previous studies for comparison. TECHNIQUE: Axial CT of the brain is performed from the vertex to the skull base. IV contrast was not administered for this examination. A dose lowering technique was utilized adhering to the principles of ALARA. CT DOSE: 1363.67 mGy.cm FINDINGS: No acute intracranial hemorrhage, no midline shift or space occupying lesions are seen. Sánchez-white matter differentiation is preserved. Evaluation is slightly limited due to beam hardening and mild motion artifact. Diffuse atrophic changes of brain parenchyma are seen. Ventricles are midline, of normal size and configuration. There is lacunar infarct/prominent perivascular space is seen within left basal ganglia. There is no acute depressed skull fractures are seen. Visualized paranasal sinuses and mastoid air cells are patent and well-aerated. IMPRESSION: 1. No acute intracranial hemorrhage, no midline shift or space occupying lesions. 2. Prominent perivascular space or lacunar infarct within left basal ganglia. 3. Limited exam due to beam hardening and motion artifact ACT 112: Negative or not required by law. The above report was generated using voice recognition software. It may contain grammatical, syntax or spelling errors. Electronically signed by: Ashely Butcher DO 02/25/2021 11:11 AM Shoulder X-Ray 02/25/21 10:01 XR shoulder LT min 2V routine CLINICAL HISTORY: Left shoulder pain. COMPARISON: None FINDINGS: There is an acute displaced left humeral neck fracture which extends into the humeral head and involves the greater tuberosity. The fracture is displaced 1.7 cm. Fracture is significantly comminuted. Alignment of the left glenohumeral joint is anatomic. The distal component is displaced anteriorly and medially. Alignment of the left acromioclavicular joint is anatomic. IMPRESSION: Acute displaced comminuted left humeral neck fracture which extends into the humeral head, as described above. ACT 112: Negative or not required by law. Electronically signed by: Parker Johnson M.D. 02/25/2021 10:39 AM Chest X-Ray 02/25/21 13:05 XR chest 1V portable CLINICAL HISTORY: pre op COMPARISON STUDY: No previous studies for comparison. FINDINGS: No pneumothorax. No pleural effusion. Small linear density seen at the left base and could represent small atelectasis or scarring. Diffuse reticular prominence of pulmonary interstitium is seen bilaterally. Cardiomediastinal silhouette is within normal limits in size. No significant pulmonary vascular congestion.. Aorta is calcified. Osseous structures: Osteopenia. Displaced fracture of the left proximal humerus. Degenerative changes of the spine. IMPRESSION: 1. Minimal atelectasis/scarring at the left base. 2. Atherosclerosis. ACT 112: Negative or not required by law. The above report was generated using voice recognition software. It may contain grammatical, syntax or spelling errors. Electronically signed by: Ashely Butcher DO 02/25/2021 1:33 PM (1) Fracture of head of humerus Encounter type: initial encounter Fracture type: closed Laterality: left Qualified Code(s): S42.292A - Other displaced fracture of upper end of left humerus, initial encounter for closed fracture
--- NOTE | 2021-02-25 15:48 | XRay Report ---
XR elbow LT 2V HISTORY: 70 years-old Female r/o fx . Acute left elbow pain status post fall COMPARISON: None TECHNIQUE: 2 views of the left elbow FINDINGS: Limited exam secondary to positioning. Demineralized appearance of the bones. Mild marginal degenerat jhonatan spurring of the elbow. No acute fracture, dislocation or large joint effusion. Soft tissue calcif ications of the dorsal proximal mid forearm. Mild dorsal soft tissue swelling of the elbow and proxim al forearm. IMPRESSION: Mild soft tissue swelling without acute fracture. ACT 112: Negative or not required by law. The above report was generated using voice recognition software. It may contain grammatical, syntax o r spelling errors. Electronically signed by: Keith Flaherty M.D. 02/25/2021 3:46 PM
--- NOTE | 2021-02-25 16:33 | CT Scan Report ---
CT shoulder LT wo con CT DOSE: 432.26 mGy.cm CLINICAL HISTORY: Left shoulder pain humeral fracture TECHNIQUE: Helical images were acquired in the transverse plane. Sagittal coronal reformatted images were acquired. A dose lowering technique was utilized adhering to the principles of ALARA. COMPARISON STUDY: X-ray study performed the same day FINDINGS: There are groundglass pulmonary opacities within the left upper lobe, and left lower lobe, likely infectious/inflammatory although a pulmonary contusion could appear similar. There is also a 3 mm left lower lobe pulmonary nodule. A 3 month follow-up chest CT is recommended. There is a comminuted fracture of the left humeral head and neck. There is an 18 mm of medial displac ement, and 19 mm of anterior displacement of the distal fragment. The fracture involves the greater t uberosity. There is minimal foreshortening/impaction at the fracture site. IMPRESSION: 1. Acute comminuted displaced fracture of the humeral head and neck with involvement of the greater t uberosity. There is 19 mm of maximal fracture displacement. There is no dislocation. 2. Nonspecific groundglass pulmonary opacities within the left upper lobe and left lower lobe likely infectious/inflammatory although a pulmonary contusion could appear similar. A 3 month follow-up ches t CT is recommended. ACT 112: Positive. There are findings on this exam that require communication between the performing entity and the patient following Patient Test Result Information Act ([place] Act 112) guidelines. Electronically signed by: Guillaume Garcia M.D. 02/25/2021 4:31 PM
--- NOTE | 2021-02-25 16:39 | Electrocardiogram Report ---
Test Reason : Blood Pressure : / mmHG Vent. Rate : 082 BPM Atrial Rate : 082 BPM P-R Int : 146 ms QRS Dur : 066 ms QT Int : 400 ms P-R-T Axes : 054 019 035 degrees QTc Int : 467 ms Poor data quality, interpretation may be adversely affected Normal sinus rhythm Nonspecific T wave abnormality Anterior leads Abnormal ECG No previous ECGs available Confirmed by Russell Jama ([id number]) on 02/25/2021 4:38:53 PM Referred By: REFERRED SELF Confirmed By:Russell Jama
[2021-02-25] MEDS ORDERED: ALUMINUM/MAGNESIUM SUSP 30 ML UDC PO PRN (16:40)
[2021-02-25] MEDS ORDERED: MAGNESIUM HYDROXIDE SUSP 30 ML UDC PO PRN (16:40)
[2021-02-25] MEDS ORDERED: ACETAMINOPHEN 325 MG TAB PO PRN (16:40)
[2021-02-25] MEDS ORDERED: POLYETHYLENE (MIRALAX) 17 GM PACK PO PRN (16:40)
[2021-02-25] MEDS ORDERED: ALBUTEROL HFA 8 GM INHALER INH PRN (16:40)
[2021-02-25] MEDS ORDERED: ONDANSETRON INJ 2 MG/ML 2 ML VIAL IV PRN (16:40)
[2021-02-25] MEDS ORDERED: MoRPHine SULFATE 2 MG/ML CARP IV PRN (16:40)
--- NOTE | 2021-02-25 17:14 | Anesthesiology Consultation ---
Date of Service February 25, 2021 Assessment & Plan (1) Encounter for pre-operative examination: Chart Review Chart Review: Acceptable Risk for Surgery and Patient NOT seen in Pre Admission Testing Consults Requested none Additional Notes Pt on coumadin for history of Factor V Leiden. Surgical team planning to proce ed when INR less than 1.3. History Surgery Operation Date: 02/26/21 07:00 Proposed Procedures p Left Reverse Total Shoulder Arthroplasty - Shakir Cole MD Height/Weight Height: 5 ft 5 in Weight: 77.1 kg Allergies Allergy/AdvReac Type Severity Reaction Status Date / Time No Known Allergies Allergy Unverified 02/25/21 11:39 Medications Home Medications Medication Instructions Recorded Confirmed Last Taken alendronate 70 mg PO SA 02/25/21 02/25/21 Unknown anastrozole [Arimidex] 1 mg PO DAILY 02/25/21 02/25/21 Unknown budesonide 1 mg INHALATION DAILY 02/25/21 02/25/21 Unknown levothyroxine 75 mcg PO DAILY 02/25/21 02/25/21 02/25/21 lisinopril 10 mg PO DAILY 02/25/21 02/25/21 Unknown nifedipine 60 mg PO DAILY 02/25/21 02/25/21 Unknown pantoprazole 20 mg PO DAILY 02/25/21 02/25/21 02/25/21 warfarin 7.5 mg PO WE 02/25/21 02/25/21 Unknown warfarin [Jantoven] 5 mg PO SUMOTUTHFRSA 02/25/21 02/25/21 Unknown Past Medical History Medical History Asthma Factor V Leiden GERD (gastroesophageal reflux disease) History of bilateral breast cancer History of DVT (deep vein thrombosis) History of pulmonary embolism HTN (hypertension) Hypothyroidism Raynauds disease Scleroderma Systemic sclerosis Thyroid cancer Past Family History Family History Mother No problems noted. Father Myocardial infarction, Onset Age: 62 Sister Ovarian cancer Past Surgical History Surgical History History of bilateral salpingo-oophorectomy (BSO) History of breast biopsy History of cholecystectomy History of colonoscopy History of esophagogastroduodenoscopy (EGD) History of hernia repair History of partial mastectomy of left breast History of thyroidectomy History of tubal ligation Social History Smoking Status: Never smoker Hx Alcohol Use: No Hx Substance Use: No Physical Exam Vital Signs Last Vital Signs Temp 36.0 C L 02/25/21 09:44 Pulse 81 02/25/21 15:31 Resp 24 02/25/21 15:31 BP 121/73 02/25/21 15:30 Pulse Ox 96 02/25/21 15:31 Testing Laboratory Results 02/25/21 10:18 02/25/21 10:18 PT 19.4 Seconds (9.0-12.0) H 02/25/21 10:18 INR 2.0 (0.9-1.1) H 02/25/21 10:18 Electrocardiogram Date: 02/25/21 Findings: + NSR @ (82) Nonspecific T wave abnormality, anterior leads, no prior ECG Chest X-Ray Date: 02/25/21 1. Minimal atelectasis/scarring at the left base. 2. Atherosclerosis. Echocardiogram Per Medicine Consult Note - echo 06/2020 significant for normal EF with moderate aortic valve stenosis. Other Testing Head CT 02/25/2021 Revealed prominent perivascular space or lacunar infarct within left basal ganglia. Pt w/o neurologic deficit or recollection per radiologist and ED provider communication likely old
[2021-02-25] MEDS: oxyCODONE/ACETAMINOPHEN 5mg/325mg TAB PO PRN (19:26)
[2021-02-26] MEDS: oxyCODONE/ACETAMINOPHEN 5mg/325mg TAB PO PRN ×3 (00:46→12:21)
[2021-02-26] MEDS: LEVOTHYROXINE SODIUM 75 MCG TABLET PO SCH (05:08)
[2021-02-26] MEDS: ANASTROZOLE 1 MG TAB PO SCH (07:23)
[2021-02-26] MEDS: PANTOprazole 40 MG TAB PO SCH (07:23)
[2021-02-26] MEDS: NIFEdipine EXTENDED REL 30 MG TABCR PO SCH (07:23)
[2021-02-26] MEDS ORDERED: BUPIVACAINE 0.5 % 5 MG/1 ML PF 10ML VIAL ONE (07:43)
[2021-02-26 08:45] LABS: Hematocrit (blood only) 37.3 % (37-47); Immature Granulocytes # (auto) 0.02 K/uL (0.00-0.02); Immature Granulocytes % (auto) 0.2 %; Lymphocytes # (auto) 0.88 K/uL (1.2-3.4); Lymphocytes % (auto) 7.9 %; Mean Corpuscular Hemoglobin 26.7 pg (25-34); Mean Corpuscular Hgb Conc 32.2 g/dL (32-36); Mean Corpuscular Volume 82.9 fL (80-100); Monocytes # (auto) 0.93 K/uL (0.11-0.59); Monocytes % (auto) 8.4 %; Neutrophils # (auto) 9.28 K/uL (1.4-6.5); Neutrophils % (auto) 83.5 %; Platelet Count 280 K/uL (130-400); RDW Coefficient of Variation 14.6 % (11.5-14.5); RDW Standard Deviation 44.9 fL (36.4-46.3); White Blood Count 11.11 K/uL (4.8-10.8)
[2021-02-26 09:04] LABS: Estimated Average Glucose 123 mg/dl; Hemoglobin A1C 5.9 % (4.5-5.6)
[2021-02-26 09:05] LABS: INR 1.1 (0.9-1.1); Prothrombin Time 11.4 Seconds (9.0-12.0)
[2021-02-26 09:23] LABS: Calcium 8.3 mg/dl (8.5-10.1); Creatinine Clr Calc Pharmacy 81.8 ml/min; Est GFR (Non-African American) 88.9 ml/min; Magnesium 2.2 mg/dl (1.8-2.4); Potassium 3.8 mmol/L (3.5-5.1)
[2021-02-26] MEDS: BUDESONIDE 0.5 MG/2 ML VIAL (PULMICORT) NEB SCH (11:09)
--- NOTE | 2021-02-26 14:15 | Neurology Consultation ---
Date of Consultation February 26, 2021 Assessment & Plan (1) Fall: 1. fall from standing - mechanical tripped when feeding animals 2. ortho for fixation of left shoulder Present on Admission?: Yes (2) Abnormal CT of brain: 1. perivascular space or lacunar infarct within the left basal ganglia 2. MRI after surgery- non urgent 3. after surgery- would start aspirin along with coumadin when ortho is comfortable with adding 4. optimize HTN HLD, LDL <70 (3) Fracture of head of humerus: 1. ortho to OR today, no neurologic reason to postpone surgery 2. will further evauate after surgery and arrange for follow up and MRI brain as outpatient if patient can no tolerate closed unit 3. follow up with neurology in 4-6 weeks, Tiffanie VILLATORO Present on Admission?: Yes Supervising Physician Co-Signing Physician Notes I have seen and discussed above patient with Dr Tiffanie Green, neurology. Patient not seen as she was in the OR discussed the patient's case with Tiffanie Rucker. Reviewed CT of the head which shows either an old left basal ganglia infarction or a dilated perivascular space. There is no contraindication to surgery. At some point an MRI of the brain would be reasonable to assess. If there is a lacunar infarction would recommend the addition of anti-platelet therapy to her anticoagulant therapy if there are no contraindications. I will see the patient tomorrow, February 27 Tiffanie Green MD History of Present Illness Reason for Consultation: lacunar infarct noted on imaging Requesting Physician: Ramone Mora MD Attending Physician: Ramone Mora MD History of Present Illness Klaudia is a 70 year old female who has a PMH-scleroderma, aortic valve stenosis, factor V Leiden heterozygote, asthma, history of bilateral breast CA, GERD, history of GI bleed, hypothyroidism presented to the Ed 02/25/2021 following a mechanical fall where she slipped while carrying a water bucket over a down spout. She fell onto her left shoulder and hit her head. She denies any head pain or neck pain. No chest pain, belly pain, back pain, or any other extremity pain other than the left shoulder which is focal to the proximal humerus. She denies passing out. She is currently in the OR suite and Dr Gupta requested she be seen prior to him taking her to the OR. She is doing fine other than the left shoulder pain. She did not have weakness, numbness or tingling prior to the event. Her just had a stroke so she know what to look for and she had no symptoms prior to the fall. She didn't feel dizzy, she just lost her balance when she was bending over to feed the kitties. +left shoulder pain, no weakness, numbness tingling Allergies Allergy/AdvReac Type Severity Reaction Status Date / Time No Known Allergies Allergy Unverified 02/25/21 11:39 Home Medications Medication Instructions Recorded Confirmed Type alendronate 70 mg PO SA 02/25/21 02/25/21 History anastrozole [Arimidex] 1 mg PO DAILY 02/25/21 02/25/21 History budesonide 1 mg INHALATION DAILY 02/25/21 02/25/21 History levothyroxine 75 mcg PO DAILY 02/25/21 02/25/21 History lisinopril 10 mg PO DAILY 02/25/21 02/25/21 History nifedipine 60 mg PO DAILY 02/25/21 02/25/21 History pantoprazole 20 mg PO DAILY 02/25/21 02/25/21 History warfarin 7.5 mg PO WE 02/25/21 02/25/21 History warfarin [Jantoven] 5 mg PO SUMOTUTHFRSA 02/25/21 02/25/21 History Patient History Medical History Asthma Factor V Leiden GERD (gastroesophageal reflux disease) History of bilateral breast cancer History of DVT (deep vein thrombosis) History of pulmonary embolism HTN (hypertension) Hypothyroidism Raynauds disease Scleroderma Systemic sclerosis Thyroid cancer Surgical History History of bilateral salpingo-oophorectomy (BSO) History of breast biopsy History of cholecystectomy History of colonoscopy History of esophagogastroduodenoscopy (EGD) History of hernia repair History of partial mastectomy of left breast History of thyroidectomy History of tubal ligation Family History Mother No problems noted. Father Myocardial infarction, Onset Age: 62 Sister Ovarian cancer Social History Smoking Status: Never smoker Hx Alcohol Use: No Hx Substance Use: No Preferred Language: [place] Communication Ability: Effective [employer] Feeder Required: No Beliefs That Will Affect Care: None marital status: Current Living Situation: Spouse and Family Current Living Situation Comment: and daughter Other Information That Helps Us Care for You: No Feels Safe at Home: Yes Safety Concerns: Feels Safe At This Time Assistive Devices: Brace/Splint/Immobilizer Review of Systems Review of Systems: All systems reviewed & are unremarkable except as noted in HPI & below Physical Exam Physical Exam: Physical Exam: Constitutional: appearance nourished, healthy Ears, Nose, Mouth and Throat: mucous membranes moist, no injection and skin normal, eyes normal Cardiovascular: normal S-1 and S-2 and regular rate and rhythm, loud systolic murmer Respiratory: clear to auscultation (CTA) Musculoskeletal: no peripheral edema and good distal pulses Skin: no stigmata of neurocutaneous disease noted and normal and intact Eyes: extraocular muscles intact (EOMI) and pupils equal, round and reactive to light (PERRL), gross peripheral vision intact NEUROLOGIC EXAMINATION: Mental status: Alert and interactive Oriented to full date and location Oriented to person Speech fluent with no evidence of aphasia Cranial Nerves smile eye brow raise symmetric Reflexes: Deep tendon reflexes were symmetrical and graded 2/5. 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 Results & Data ([facility]) Vital Signs (Past 12 Hours) Vital Signs Temp Pulse Pulse Resp BP Pulse Ox 02/26/21 11:11 77 16 93 02/26/21 11:03 36.8 C 70 18 152/79 H 92 02/26/21 07:18 36.8 C 73 18 145/75 H 91 02/26/21 04:12 37.1 C 69 18 139/76 96 Laboratory Results Abnormal lab results 02/26/21 02/26/21 02/26/21 Range/Units 08:12 08:12 08:12 WBC 11.11 H (4.8-10.8) K/uL RDW Coeff of Mena 14.6 H (11.5-14.5) % Neut # (Auto) 9.28 H (1.4-6.5) K/uL Lymph # (Auto) 0.88 L (1.2-3.4) K/uL Vance # (Auto) 0.93 H (0.11-0.59) K/uL Glucose 104 H (70-99) mg/dl Hemoglobin A1c 5.9 H (4.5-5.6) % Calcium 8.3 L (8.5-10.1) mg/dl Diagnostic Findings CT head-No acute intracranial hemorrhage, no midline shift or space occupying lesions. Prominent perivascular space or lacunar infarct within left basal ganglia. Limited exam due to beam hardening and motion artifact left shoulder xray-Acute displaced comminuted left humeral neck fracture which extends into the humeral head. CXR- Minimal atelectasis/scarring at the left base. Atherosclerosis. CT shoulder- Acute comminuted displaced fracture of the humeral head and neck with involvement of the greater tuberosity. There is 19 mm of maximal fracture displacement. There is no dislocation. Nonspecific ground glass pulmonary opacities within the left upper lobe and left lower lobe likely infectious/inflammatory although a pulmonary contusion could appear similar. A 3 month follow-up chest CT is recommended. xray elbow-Mild soft tissue swelling without acute fracture. (1) Fracture of head of humerus Encounter type: initial encounter Fracture type: closed Laterality: left Qualified Code(s): S42.292A - Other displaced fracture of upper end of left humerus, initial encounter for closed fracture (2) Fall Encounter type: initial encounter Qualified Code(s): W19.XXXA - Unspecified fall, initial encounter
[2021-02-26] MEDS ORDERED: ATROPINE SULFATE 0.1 MG/ML 10ML SYR IV PRN (14:18)
[2021-02-26] MEDS ORDERED: fentaNYL citrate 100 MCG/2 ML VIAL IV PRN (14:18)
[2021-02-26] MEDS ORDERED: ONDANSETRON INJ 2 MG/ML 2 ML VIAL IV PRN ×2 (14:18→21:34)
[2021-02-26] MEDS ORDERED: ePHEDrine sulfate 50 MG/ML AMP IV PRN (14:18)
[2021-02-26] MEDS ORDERED: MIDAZOLAM HCL 1 MG/ML 2ML VIAL ONE (14:25)
[2021-02-26] MEDS ORDERED: fentaNYL citrate 100 MCG/2 ML VIAL ONE (14:25)
[2021-02-26] MEDS ORDERED: PROPOFOL IV EMULSION 10 MG/ML 20 ML VIAL IV ONE (14:25)
[2021-02-26] MEDS ORDERED: ceFAZolin 2,000 MG/15 ML IV PUSH IV ONE (14:42)
--- NOTE | 2021-02-26 14:42 | History & Physical Bridge Note ---
Date of Service February 26, 2021 History & Physical Bridge Note I have examined the patient, reviewed the History & Physical and in the interval since the performance of the History & Physical I have noted the following changes of clinical significance: no changes noted
[2021-02-26] MEDS ORDERED: ceFAZolin 2000MG 2,000 MG/15 ML SYR IV ONE (14:45)
--- NOTE | 2021-02-26 15:11 | Hospitalist Progress Note ---
Date of Service February 26, 2021 Assessment & Plan (1) Fracture of neck of left humerus: (2) Left shoulder pain: This is a 70-year-old female who has significant past medical history of scleroderma, aortic valve stenosis, factor V Leiden heterozygote, asthma, history of bilateral breast cancer, GERD, history of GI bleed, hypothyroidism who presents ED after sustaining mechanical fall and subsequent left shoulder pain prior to arrival. Acute displaced comminuted left humeral neck fracture which extends into the humeral head Overall patient is doing okay. Hemodynamically doing fine. Currently pain is well controlled. Appreciate orthopedics input. Plan to go to the OR today. N.p.o. except meds. Continue holding Coumadin. INR today at 1.1 IV morphine severe pain, po percocet for moderate pain schedule APAP ICE QID, NWB to LUE. Lacunar infarct on CT Head Absence of any slurred speech. Absence of any focal weakness. Awaiting neurology input. (3) Asthma: Currently patient is on room air. Hemodynamically doing fine. Denies any shortness of breath prn albuterol (4) Systemic sclerosis: Continue nifedipine (5) Factor V Leiden: hx of PE in ~ 2002, unprovoked heterozygote on chronic coumadin, INR 1.1 today (6) HTN (hypertension): continue nifedipine (on for scleroderma) hold lisinopril for now, reassess and resume as able (7) Hypothyroidism: continue levothyroxine (8) History of bilateral breast cancer: continue arimidex therapy (9) DVT prophylaxis: Continue holding Coumadin for OR today will need chemical prophylaxis post op scd/teds Dispo: med/surg PCP: Dr. Clay FULL CODE Admission and Anticipated Discharge Date Admission Date: February 25, 2021 Subjective Patient is awake, alert and oriented x3. Currently reports some pain at the left upper extremity. Denies any chest or back. Denies any abdominal pain, diarrhea or dysuria. Rest of the review of system is negative. Review of Systems Review of Systems: All systems reviewed & are unremarkable except as noted in HPI & below Physical Exam Physical Exam: General: A&Ox3 HENT: NCAT, MMM, EOMI Eyes: PERRLA Neck: Supple, normal range of motion CVS: normal rate and rhythm Resp: b/l good breath sounds Abdomen: Soft, ND/NT, +BS Extremities: LUE sling in place Neuro: face symmetric, strength grossly equal, no focal deficit Skin: warm and dry, no rashes/lesions/errythema MSK: normal ROM, no joint swelling/erythema Results & Data Results & Data ([facility]) Vital Signs (Past 12 Hours) Vital Signs Temp Pulse Pulse Resp BP Pulse Ox 02/26/21 11:11 77 16 93 02/26/21 11:03 36.8 C 70 18 152/79 H 92 02/26/21 07:18 36.8 C 73 18 145/75 H 91 02/26/21 04:12 37.1 C 69 18 139/76 96
[2021-02-26] MEDS ORDERED: ETOMIDATE 2 MG/ML 20 ML VIAL IV ONE (16:49)
[2021-02-26] MEDS ORDERED: DEXAMETHASONE SOD INJ 4 MG/ML VIAL ONE (16:49)
[2021-02-26] MEDS ORDERED: ONDANSETRON INJ 2 MG/ML 2 ML VIAL ONE (16:49)
[2021-02-26] MEDS ORDERED: EpINEphrine HCL INJ 1 MG/ML 1ML SYRINGE ONE (18:14)
[2021-02-26] MEDS ORDERED: GLYCOPYRROLATE 0.2 MG/ML VIAL ONE (18:41)
[2021-02-26] MEDS ORDERED: NEOSTIGMINE METHYLSULFATE 1 MG/ML 10ML VIAL ONE (18:41)
--- NOTE | 2021-02-26 19:13 | Post Operative Brief Note ---
Immediate Post Op Note v1 Date of Surgery February 26, 2021 Pre & Post Diagnosis Operation Date: 02/26/21 07:00 Pre-Op Diagnosis: Displaced and comminuted fracture left proximal humerus neck and head including tuberosities Post-Op Diagnosis: Displaced and comminuted fracture left proximal humerus neck and head including tuberosities I identified the patient and participated in the time-out.: Yes Procedure Operation Date: 02/26/21 07:00 Actual Procedures p Left Fractured Reverse Total Shoulder Arthroplasty Cemented, Repair and Bone Grafting of Tuberosity Fractures, Biceps Tenodesis(Left) - Shakir Cole MD Surgeon Shakir Cole MD It Technical Architect Buck BLISS Estimated Blood Loss 40 Findings Consistent with Post-Op Diagnosis Specimens Humeral head fragments Drains Chandra Catheter and Hemovac Drain Anesthesia Type General Regional Complications none Disposition Accompanied Patient To Recovery: No Disposition: Recovery Room Overlapping Procedure I was immediately available: during the entire case.
[2021-02-26] MEDS ORDERED: PROMETHAZINE HCL 12.5 MG in SODIUM CHLORIDE 0.9% 50 ML IV PRN (19:53)
[2021-02-26] MEDS ORDERED: LABETALOL HCL IV 5 MG/ML 20ML IV PRN (19:53)
--- NOTE | 2021-02-26 20:29 | XRay Report ---
LEFT SHOULDER 2 VIEWS CLINICAL HISTORY: Postoperative examination. FINDINGS: 2 portable views of the left shoulder are obtained. The skeletal structures are osteopenic. A left shoulder arthroplasty is in near-anatomic alignment. There is a large displaced bony fragment along the proximal aspect of the arthroplasty. No additional findings are concerning for acute fract ure. The acromioclavicular joint appears maintained. Skin clips, a surgical drain, soft tissue swelli ng, and subcutaneous venous gas overlying the left shoulder are expected postoperative changes . The left lung parenchyma is clear as imaged. IMPRESSION: 1. There is a large displaced bony fragment along the proximal aspect of the arthroplasty. 2. No additional findings are concerning for acute fracture. Electronically signed by: Crow Verde M.D. 02/26/2021 8:28 PM
--- NOTE | 2021-02-26 20:46 | Anesthesiology Progress Note ---
Date of Service February 26, 2021 Anesthesia Post Procedure Vital Signs Vital Signs: Temp Pulse Pulse Pulse Resp BP Pulse Ox 02/26/21 20:25 65 17 145/79 H 96 02/26/21 20:15 59 L 16 146/70 H 100 02/26/21 20:05 68 25 H 151/68 H 100 02/26/21 19:55 72 15 144/70 H 100 02/26/21 19:45 36.3 C L 68 15 174/90 H 100 02/26/21 11:11 77 16 93 02/26/21 11:03 36.8 C 70 18 152/79 H 92 02/26/21 07:18 36.8 C 73 18 145/75 H 91 02/26/21 04:12 37.1 C 69 18 139/76 96 02/25/21 23:40 36.9 C 76 20 124/69 92 Pain Intensity Left Shoulder: Pain Intensity: 3 Transfer of Care Handoff Completed per policy Notes Mental Status: alert / awake / arousable Patient Amnestic to Procedure: Yes Nausea / Vomiting: adequately controlled Pain: adequately controlled Airway Patency, RR, SpO2: stable & adequate BP & HR: stable & adequate Hydration State: stable & adequate Anesthetic Complications: no major complications apparent
--- NOTE | 2021-02-26 21:17 | Operative Report (OR) ---
DATE OF OPERATION: 02/26/2021 INDICATION FOR PROCEDURE: The patient is a 70-year-old female who had a slip and fall injury and fractured her left proximal humerus. She had x-rays and a CT scan demonstrating that she has a displaced proximal humerus fracture with 100% displacement and significant comminution of the neck, greater tuberosity fractures and some inferior lesser tuberosity fracturing as well. The fracture line extends up into the humeral head and there was compression of the shaft into the head, creating some bone loss tissue. The patient also has what appears to be an osteoporotic fracture. PREOPERATIVE DIAGNOSIS: Displaced comminuted fracture, left proximal humerus neck and head including tuberosities. POSTOPERATIVE DIAGNOSIS: Displaced comminuted fracture, left proximal humerus neck and head including tuberosities. PROCEDURE: Left fracture reversed total shoulder arthroplasty including repair and bone grafting of the tuberosity fractures with biceps tenodesis. SURGEON: Shakir Cole MD MANAGER SEARCH: Mika Michael PA-C ESTIMATED BLOOD LOSS: 40 mL. SPECIMENS: Humeral head fragments. DRAINS: Two Hemovac and a Chandra catheter. ANESTHESIA: Regional block and general. COMPLICATIONS: None. DISPOSITION: Recovery room and no overlapping procedure. OPERATIVE PROCEDURE: The patient was taken to the operating room, anesthetized under general regional block anesthetic. She was positioned on the operating room table on a 40-degree beach chair position with towel roll under the medial border of her left scapula. She was translated to left side of bed, so the shoulder can be manipulated off the bed as necessary. Her head was placed on a foam headrest and she had protective eyewear placed. She had TEDs and SCDs and a Chandra catheter. All extremities well padded. Left upper extremity exam demonstrated ecchymosis of the upper arm due to recent fracture, swelling of the shoulder, crepitation consistent with a fracture. Skin was intact. Left shoulder and upper extremity were prepped and draped in sterile fashion using ChloraPrep. An anterior longitudinal incision was made with a deltopectoral approach. Skin was incised sharply. Subcutaneous flaps were elevated. There was some hemorrhage from the injury noted, which was old. The cephalic vein was dissected out and retracted laterally with the deltoid. Pectoralis was retracted medially. The upper centimeter of the pectoralis was released for inferior exposure and biceps tendon was identified. There was an acute swelling around the biceps tendon from the trauma. There was comminution of the neck and displaced humeral head, which was unstable. The inferior aspect of the neck adjacent to the lesser tuberosity was comminuted. There were some comminuted fragments of the greater tuberosity, which was split into upper and lower fragments with different fragment attached to the supraspinatus and the infraspinatus. The rotator cuff itself was intact. Irrigation was performed. The clavipectoral fascia was divided at the lateral margin of the strap muscle and divided up to the CA ligament, which was preserved. The inflamed bursa tissue was resected. The upper centimeter of the pectoralis was released for inferior exposure. The biceps tendon was tenodesed to the pectoralis tendon using [id number] #2 FiberWire sutures. The proximal biceps was followed and incision was carried along the biceps tendon into the rotator interval down to the glenoid. Then, the biceps was resected after that. A traction suture was placed in the subscapularis medial to the lesser tuberosity fracture and the osteotomy was performed of the lesser tuberosity, leaving a large portion of bone for repair to the prosthetic. Then the upper portion of the greater tuberosity had to be osteotomized from the remainder of the humeral head fragment and traction sutures were placed through the infraspinatus and supraspinatus tissue with #1 Vicryl. Then the humeral head fragment was removed. Multiple comminuted fragments were removed. The shaft was noted to have cancellous bone within the shaft from the shaft being impaled into the humeral head and that cancellous bone was removed and saved for bone graft. The glenoid was inspected and was normal with normal articular surfaces and normal labrum. The remainder of the biceps tendon was resected. The labrum was resected. Capsular release was performed anterior inferior, posterior inferior and the triceps tendon was released with a Stoddard elevator. We stayed right on bone to protect the axillary nerve. The glenoid articular surface was removed with a curette, so we can get the normal version of the glenoid for appropriate placement of the implant. The patient had a petite glenoid and a 25 baseplate fully covered the entire bony surface of the lower aspect of the glenoid. I used the Tornier Aequalis glenoid hydroxyapatite coated standard post-glenoid baseplate for the reversed shoulder replacement. The guide was used to place a central drill hole in 10 degrees of inferior tilt and then the reamer was used and a central drill hole was widened for the post of the implant and then after irrigation, the implant was impacted into the glenoid with a tight pressfit. The baseplate was transfixed to the glenoid with anterior and posterior 18 x 4.5 mm compression screws and superior and inferior locking screws of 38.9 mm respectively. The patient did have osteoporosis noted and the compression screws had very good fixation and there was good fixation with both the locking screws. It appeared to be a solid fixation of the baseplate with the construct performed. The fan reamer was used for the 36 mm glenosphere and then the 36 standard glenosphere was impacted onto the baseplate and screw was tightened. We moved onto the humeral preparation. The patient had very petite shaft of the humerus. The canal reamers noted that the 7 mm fracture reversed Tornier humeral stem was appropriate size. We placed a trial implant and position measured the height above the fracture to be 30 mm. We did trial reduction with 36+6 implant and there was stable fixation. I felt the height was appropriate based on the exam. We did place the implant in 20 degrees of retroversion. The location was marked and then the trial was removed and the canal was irrigated. The cement restrictor was placed to appropriate depth distal to the tip of the trial prosthetic. Then 2 drill holes were made into the cortical bone of the shaft and two #5 FiberWire sutures were placed for later repair of the tuberosities to the shaft. The four #5 FiberWire sutures were placed around the greater tuberosity fracture fragments to the supraspinatus and infraspinatus tendon tissue. These were hemostatic for later repair. Then the canal was irrigated copiously and an epinephrine-soaked tampon sponge was placed in the canal after it was suctioned out. Then, the bone graft was harvested from the humeral head. We used the bone graft harvester to remove appropriate shape to the bone graft to place it into the hole and the prosthetic. This was placed into the size 7 x 130 fracture stem. Then we ground up some of the cancellous bone from the humeral head to bone graft the tuberosities to the stem proximally. The cement was then vacuum mixed. We used Palacos cement. Then the canal was dried and the stem was cemented leaving the bone graft exposed for bone grafting to the proximal shaft and to tuberosities. Stem was placed at the same height as noted previously and in 20 degrees of retroversion and held in position until the cement cured. Then the humeral polyethylene 36+6 was impacted onto the stem. Sutures from the tuberosities were placed around the neck of the prosthetic prior to reducing the prosthesis. Then the prosthesis was reduced and the humerus to the glenosphere. Then we irrigated this out copiously prior to bone grafting. Then first the greater tuberosity was repaired to the prosthesis with bone graft posteriorly and then overlying the greater tuberosity onto the prosthesis and using 2 of the four #5 FiberWires and tied those down and rotation was performed to assess the tuberosity fixation, which was stable. Then I went ahead and put more bone graft anteriorly under the lesser tuberosity site for repair to the prosthetic. Two left sutures were passed around the lesser tuberosity through the subscapularis tendon and then after bone graft was placed, the lesser tuberosity was placed onto the prosthetic and sutured to the prosthesis and to the greater tuberosity with the additional two #5 FiberWire sutures. Then, the Vicryl sutures that were placed were tied repairing the tuberosities to each other for reinforcement. Then the FiberWire sutures from the shaft were placed in [id number] fashion through the subscapularis and supraspinatus and infraspinatus tendon tissue to repair the tuberosities to the shaft. The arm was taken through range of motion and it was stable through 45 degrees external rotation, 90 degrees of abduction and 120 degrees forward elevation. The 2 Hemovac drains were placed after the pectoralis tendon was repaired with some further [id number] #2 FiberWire sutures passing sutures through the biceps tendon to reinforce tenodesis. The deltopectoral interval was repaired with [id number] #1 Vicryl suture. Then we did some superficial irrigation and repaired subcutaneous tissues with interrupted 2-0 Vicryl and the skin was closed with shawn and sterile dressings were applied and a shoulder immobilizer. The patient had no complications. RUTHY Escalera was my business banking sales assistant and functioned as business banking sales assistant for the entire procedure. He assisted in patient positioning, prepping, draping, arm positioning, soft tissue retraction throughout the procedure, instrument management as necessary. He performed the subcutaneous and skin closure and will participate in postoperative care of the patient. I attest to the content of the Intraoperative Record and any orders documented therein. Any exception s are noted below.
[2021-02-26] MEDS ORDERED: NALOXONE HCL 0.4 MG/1 ML VIAL/CARP IV PRN (21:34)
[2021-02-26] MEDS ORDERED: METOCLOPRAMIDE HCL INJ 5 MG/ML 2 ML VIAL IV PRN (21:34)
[2021-02-26] MEDS ORDERED: bisacodyL 10 MG SUPP PR PRN (21:34)
[2021-02-26] MEDS ORDERED: MAGNESIUM HYDROXIDE SUSP 30 ML UDC PO PRN (21:34)
[2021-02-26] MEDS ORDERED: SODIUM CHLORIDE 0.9% 1000ML 1,000 ML IV SCH (21:34)
[2021-02-26] MEDS: SENNA 8.6 MG TAB PO SCH (22:11)
[2021-02-26] MEDS: DOCUSATE SODIUM 100 MG CAP PO SCH (22:11)
[2021-02-26] MEDS: ceFAZolin 2000MG 2,000 MG/15 ML SYR IV SCH (23:47)
[2021-02-27] MEDS: LEVOTHYROXINE SODIUM 75 MCG TABLET PO SCH (05:10)
--- NOTE | 2021-02-27 06:56 | Orthopedic Progress Note ---
Date of Service February 27, 2021 Assessment & Plan (1) Fracture of head of humerus: POD#1 Left reverse TSA, biceps tenodesis -PT/OT-no shoulder motion. May do elbow/wrist/hand motion, shrugs, pendulums -AM labs pending -Pain management as written -DVT prophylaxis-SCDs, okay to resume oral anticoagulation today -D/C planning-plan on d/c home when stable per medicine. She should follow up with Dr. Cole's office 12-14 days post operatively. She can call [phone] for an appointment Admission and Anticipated Discharge Date Admission Date: February 25, 2021 Subjective Patient doing well this morning. Not having any pain currently. Denies any complaints. No chest pain, sob, dizziness, headache, fever, chills. Review of Systems Review of Systems: All systems reviewed & are unremarkable except as noted in Subjective Physical Exam Physical Exam: Left shoulder sling is intact, dressing c/d/i. Hemovac on suction. Fingers mobile. distally n/v status and sensation are intact. Constitutional: well developed and well nourished; no acute distress Results & Data ([facility]) Vital Signs (Past 12 Hours) Vital Signs Temp Pulse Pulse Pulse Resp BP Pulse Ox 02/27/21 03:03 37.1 C 70 19 125/70 95 02/26/21 23:55 66 02/26/21 23:30 37.0 C 67 20 110/68 91 02/26/21 22:15 36.6 C 75 18 119/68 92 02/26/21 21:44 36.7 C 65 16 132/75 93 02/26/21 20:25 36.4 C L 65 17 145/79 H 96 02/26/21 20:15 59 L 16 146/70 H 100 02/26/21 20:05 68 25 H 151/68 H 100 02/26/21 19:55 72 15 144/70 H 100 02/26/21 19:45 36.3 C L 68 15 174/90 H 100 (1) Fracture of head of humerus Encounter type: initial encounter Fracture type: closed Laterality: left Qualified Code(s): S42.292A - Other displaced fracture of upper end of left humerus, initial encounter for closed fracture
[2021-02-27] MEDS: BUDESONIDE 0.5 MG/2 ML VIAL (PULMICORT) NEB SCH (07:23)
[2021-02-27 08:08] LABS: Basophils # (auto) 0.01 K/uL (0-0.2); Basophils % (auto) 0.1 %; Hematocrit (blood only) 34.4 % (37-47); Hemoglobin 11.2 g/dL (12.0-16.0); Immature Granulocytes # (auto) 0.04 K/uL (0.00-0.02); Immature Granulocytes % (auto) 0.3 %; Lymphocytes # (auto) 1.35 K/uL (1.2-3.4); Lymphocytes % (auto) 9.1 %; Mean Corpuscular Hemoglobin 26.7 pg (25-34); Mean Corpuscular Hgb Conc 32.6 g/dL (32-36); Mean Corpuscular Volume 81.9 fL (80-100); Mean Platelet Volume 9.8 fL (7.4-10.4); Monocytes # (auto) 1.34 K/uL (0.11-0.59); Neutrophils % (auto) 81.5 %; Platelet Count 277 K/uL (130-400); RDW Coefficient of Variation 14.8 % (11.5-14.5); White Blood Count 14.84 K/uL (4.8-10.8)
[2021-02-27] MEDS: ceFAZolin 2000MG 2,000 MG/15 ML SYR IV SCH (08:34)
[2021-02-27] MEDS: PANTOprazole 40 MG TAB PO SCH (08:34)
[2021-02-27] MEDS: DOCUSATE SODIUM 100 MG CAP PO SCH ×2 (08:35→19:31)
[2021-02-27] MEDS: ANASTROZOLE 1 MG TAB PO SCH (08:35)
[2021-02-27] MEDS: NIFEdipine EXTENDED REL 30 MG TABCR PO SCH (08:35)
[2021-02-27] MEDS: MULTIVITAMIN TAB PO SCH (08:35)
[2021-02-27 08:39] LABS: BUN Creatinine Ratio 19.3 (10-20); Calcium 8.2 mg/dl (8.5-10.1); Creatinine Clr Calc Pharmacy 105.2 ml/min; Est GFR (African American) 111.4 ml/min; Est GFR (Non-African American) 96.1 ml/min; Potassium 3.8 mmol/L (3.5-5.1)
--- NOTE | 2021-02-27 14:45 | Hospitalist Progress Note ---
Date of Service February 27, 2021 Assessment & Plan (1) Fracture of neck of left humerus: (2) Left shoulder pain: This is a 70-year-old female who has significant past medical history of scleroderma, aortic valve stenosis, factor V Leiden heterozygote, asthma, history of bilateral breast cancer, GERD, history of GI bleed, hypothyroidism who presents ED after sustaining mechanical fall and subsequent left shoulder pain prior to arrival. Acute displaced comminuted left humeral neck fracture which extends into the humeral head S/P Left reverse TSA, biceps tenodesis 02/26 Delirium Hemodynamically doing fine. Currently pain is well controlled. Appreciate orthopedics input. Restart coumadin once MRI brain is negative. Repeat INR in the morning. IV morphine severe pain, po percocet for moderate pain Hemovac drain in place; possibly remove today. Follow up with orthopaedics as an OP. schedule APAP ICE QID, NWB to LUE. Work with pt/ot today Lacunar infarct on CT Head Absence of any slurred speech. Absence of any focal weakness. Appreciate neurology input. MRI brain ordered. (3) Asthma: Currently patient is on room air. Hemodynamically doing fine. Denies any shortness of breath prn albuterol (4) Systemic sclerosis: Continue nifedipine (5) Factor V Leiden: hx of PE in ~ 2002, unprovoked heterozygote on chronic coumadin, INR 1.1 on 02/26 (6) HTN (hypertension): continue nifedipine (on for scleroderma) hold lisinopril for now, reassess and resume as able (7) Hypothyroidism: continue levothyroxine (8) History of bilateral breast cancer: continue arimidex therapy (9) DVT prophylaxis: Continue holding Coumadin for OR today will need chemical prophylaxis post op scd/teds Dispo: med/surg PCP: Dr. Clay FULL CODE Admission and Anticipated Discharge Date Admission Date: February 25, 2021 Subjective Earlier this morning patient was doing okay. However later in the day patient was a bit confused. Pain is controlled. Rest of the review of system is negative. Review of Systems Review of Systems: All systems reviewed & are unremarkable except as noted in HPI & below Physical Exam Physical Exam: General: A&Ox3 HENT: NCAT, MMM, EOMI Eyes: PERRLA Neck: Supple, normal range of motion CVS: normal rate and rhythm Resp: b/l good breath sounds Abdomen: Soft, ND/NT, +BS Extremities: LUE sling in place, hemovac in place Neuro: face symmetric, strength grossly equal, no focal deficit Skin: warm and dry, no rashes/lesions/errythema MSK: normal ROM, no joint swelling/erythema Results & Data Results & Data ([facility]) Vital Signs (Past 12 Hours) Vital Signs Temp Pulse Resp BP Pulse Ox 02/27/21 07:27 37.1 C 82 16 121/74 95 02/27/21 07:23 71 16 95 02/27/21 03:03 37.1 C 70 19 125/70 95
--- NOTE | 2021-02-27 16:20 | Neurology Progress Note ---
Date of Service February 27, 2021 Assessment & Plan (1) Fall: 1. fall from standing - mechanical tripped when feeding animals 2. ortho for fixation of left shoulder (2) Abnormal CT of brain: 1. perivascular space or lacunar infarct within the left basal ganglia 2. MRI after surgery- non urgent 3. after surgery- would start aspirin along with coumadin when ortho is comfortable with adding 4. optimize HTN HLD, LDL <70 (3) Fracture of head of humerus: 1. ortho to OR today, no neurologic reason to postpone surgery 2. will further evauate after surgery and arrange for follow up and MRI brain as outpatient if patient can no tolerate closed unit 3. follow up with neurology in 4-6 weeks, Tiffanie Rucker PAC Admission and Anticipated Discharge Date Admission Date: February 25, 2021 Supervising Physician Co-Signing Physician Notes I have seen and discussed above patient with Dr Tiffanie Green, neurology patient seen and examined. Patient seen and examined. CT of the brain reviewed. Patient has atrial fibrillation is on anticoagulants. She has no prior history of stroke or symptoms suggestive of transient ischemic attack. The patient slipped on grass and fractured her shoulder no focal neurologic deficit was observed there after although the patient could not get up due to arm fracture and pain. On exam she is awake and alert speech and language are normal. There is a systolic murmur heard throughout the precordium and over the carotids. There is normal extraocular motility visual aguilar facial symmetry. Speech and spontaneous language are normal. Motor full strength on the right without with normal rapid alternating movements grasp is normal on the left the left shoulder is immobilized status post surgery lower extremity strength is full reflexes are symmetric in the lowers present in the right upper toes are downgoing [id number] on the right and [id number] is normal. Impression dilated perivascular space versus lacunar infarction in the left basal ganglia, favor the former rather than the latter. The patient indicates that she has had some MRI imaging in the past. If primary care can locate those images or report and it was an MRI of the brain and it showed similar findings then I do not think she needs further imaging. If she is not had a prior imaging study with the same findings I would recommend noncontrast MRI of the brain as an outpatient. If there was a dilated perivascular space this is a normal anatomic structure. If there is a lacunar infarction I would recommend antiplatelet therapy with aspirin 81 mg provided there are no contraindications. I have taken the liberty to order carotid ultrasound. The patient has bilateral bruits but they are likely related to a referred murmur. Will sign off Subjective Klaudia is a 70 year old female who has a PMH-scleroderma, aortic valve stenosis, factor V Leiden heterozygote, asthma, history of bilateral breast CA, GERD, history of GI bleed, hypothyroidism presented to the Ed 02/25/2021 following a mechanical fall where she slipped while carrying a water bucket over a down spout. She fell onto her left shoulder and hit her head. She denies any head pain or neck pain. No chest pain, belly pain, back pain, or any other extremity pain other than the left shoulder which is focal to the proximal humerus. She denies passing out. She is currently sitting in bed and post surgery of her left shoulder. She has a hemovac drain and was told she would be her at least 2 more days. She is doing fine other than the left shoulder pain. She did not have weakness, numbness or tingling prior to the event. Her just had a stroke so she know what to look for and she had no symptoms prior to the fall. She didn't feel dizzy, she just lost her balance when she was bending over to feed the kitties. +left shoulder pain, no weakness, numbness tingling Review of Systems Review of Systems: All systems reviewed & are unremarkable except as noted in HPI & below Physical Exam Physical Exam: Physical Exam: Constitutional: appearance nourished, healthy Ears, Nose, Mouth and Throat: mucous membranes moist, no injection and skin normal, eyes normal Cardiovascular: normal S-1 and S-2 and regular rate and rhythm, loud systolic murmer Respiratory: clear to auscultation (CTA) Musculoskeletal: no peripheral edema and good distal pulses Skin: no stigmata of neurocutaneous disease noted and normal and intact Eyes: extraocular muscles intact (EOMI) and pupils equal, round and reactive to light (PERRL), gross peripheral vision intact NEUROLOGIC EXAMINATION: Mental status: Alert and interactive Oriented to full date and location Oriented to person Speech fluent with no evidence of aphasia Cranial Nerves smile eye brow raise symmetric Reflexes: Deep tendon reflexes were symmetrical and graded 2/5. Sensory: intact to light cool and vibration Coordination: rapid hand movements intact Gait/Stance: Posture lying in bed, did not assess gait Motor: unable to assess due to shoulder fracture Strength: hand mop maker 5/5 bilaterally hip flex bilaterally 5/5, left arm not assessed. Results & Data ([facility]) Vital Signs (Past 12 Hours) Vital Signs Temp Pulse Resp BP Pulse Ox 02/27/21 15:40 37.0 C 115 H 16 132/73 93 02/27/21 07:27 37.1 C 82 16 121/74 95 02/27/21 07:23 71 16 95 (1) Fracture of head of humerus Encounter type: initial encounter Fracture type: closed Laterality: left Qualified Code(s): S42.292A - Other displaced fracture of upper end of left humerus, initial encounter for closed fracture (2) Fall Encounter type: initial encounter Qualified Code(s): W19.XXXA - Unspecified fall, initial encounter
[2021-02-27] MEDS: SENNA 8.6 MG TAB PO SCH (19:31)
[2021-02-27] MEDS: oxyCODONE/ACETAMINOPHEN 5mg/325mg TAB PO PRN (19:31)
[2021-02-27] MEDS ORDERED: OLANZapine 10 MG/2.1 ML SDV IM PRN (22:16)
[2021-02-27] MEDS ORDERED: traMADol HCL 50 MG TABLET PO PRN (22:18)
--- NOTE | 2021-02-27 22:18 | Communication Note ---
Date of Service: February 27, 2021 Notified by RN of patient confusion. Patient with visual hallucinations. Percocet given prior to confusion as per RN. Patient tachycardic as per RN. WBC in a.m. noted to be 14 UA WBC esterase AP Delirium Multifactorial Sepsis, complicated UTI Percocet possibly contributory CS, lactic acid, IVF, Cefepime Hold Percocet for now. Low-dose tramadol for pain not relieved by Tylenol. Will relay to AM provider.
[2021-02-27] MEDS ORDERED: METOPROLOL TARTRATE 1 MG/ML VIAL IV STA (22:19)
[2021-02-27] MEDS ORDERED: LACTATED RINGER'S 1,000 ML IV ONE (23:18)
[2021-02-27] MEDS: POTASSIUM CHLORIDE / WTR 10 MEQ/100 ML PLCT IV SCH (23:27)
[2021-02-28] MEDS: POTASSIUM CHLORIDE / WTR 10 MEQ/100 ML PLCT IV SCH (00:17)
[2021-02-28 00:27] LABS: Albumin Level 2.8 gm/dl (3.4-5.0); Magnesium 1.8 mg/dl (1.8-2.4); Thyroid Stimulating Hormone 0.966 uIu/ml (0.300-4.500)
[2021-02-28 01:19] LABS: Appearance Urine Clear (Clear); Bacteria Urine Automated Negative (Negative); Bilirubin Urine Negative (Negative); Blood Urine Negative (Negative); Color Urine Yellow; Epithelial Cell Urine Auto 20-30 /lpf (0-5); Glucose Urine UA Negative (Negative); Ketones Urine 1+ (Negative); Leukocyte Esterase Urine 1+ (Negative); Nitrite Urine Negative (Negative); Protein Urine Negative (Negative); RBC Urine Automated 0-4 /hpf (0-4); Specific Gravity Urine 1.016 (1.000-1.030); Urobilinogen Urine Negative (Negative)
[2021-02-28] MEDS ORDERED: CEFEPIME CONSULT ACTIVE PRN (01:27)
[2021-02-28] MEDS ORDERED: MAGNESIUM SULFATE / D5W 1 GM/100 ML BAG IV ONE (01:45)
[2021-02-28] MEDS ORDERED: CEFEPIME 2,000 MG in SYRINGE 0 ML IV SCH (02:00)
[2021-02-28 02:10] LABS: Basophils # (auto) 0.01 K/uL (0-0.2); Hematocrit (blood only) 35.7 % (37-47); Hemoglobin 11.5 g/dL (12.0-16.0); Immature Granulocytes # (auto) 0.06 K/uL (0.00-0.02); Immature Granulocytes % (auto) 0.3 %; Lymphocytes # (auto) 1.17 K/uL (1.2-3.4); Lymphocytes % (auto) 5.8 %; Mean Corpuscular Hemoglobin 26.7 pg (25-34); Mean Corpuscular Hgb Conc 32.2 g/dL (32-36); Mean Corpuscular Volume 82.8 fL (80-100); Mean Platelet Volume 9.8 fL (7.4-10.4); Monocytes # (auto) 2.11 K/uL (0.11-0.59); Monocytes % (auto) 10.5 %; Neutrophils % (auto) 83.4 %; Platelet Count 303 K/uL (130-400); RDW Coefficient of Variation 14.7 % (11.5-14.5); RDW Standard Deviation 45.6 fL (36.4-46.3); Red Blood Count 4.31 M/uL (4.2-5.4); White Blood Count 20.15 K/uL (4.8-10.8)
[2021-02-28 02:24] LABS: BUN Creatinine Ratio 15.2 (10-20); Calcium 8.1 mg/dl (8.5-10.1); Creatinine Clr Calc Pharmacy 88.2 ml/min; Est GFR (African American) 105.1 ml/min; Est GFR (Non-African American) 90.7 ml/min; Potassium 3.7 mmol/L (3.5-5.1)
[2021-02-28] MEDS: LEVOTHYROXINE SODIUM 75 MCG TABLET PO SCH (04:25)
--- NOTE | 2021-02-28 07:04 | Orthopedic Progress Note ---
Date of Service February 28, 2021 Assessment & Plan (1) Fracture of head of humerus: POD#2 Left reverse TSA, biceps tenodesis -PT/OT-no shoulder motion. May do elbow/wrist/hand motion, shrugs, pendulums -AM labs hemoglobin stable at 11.5. Leukocytosis-white count at 20k overnight up from 14 yesterday. Was started on Cefepime for concern for possible UTI/sepsis. -Pain management as written -DVT prophylaxis-SCDs, okay to resume oral anticoagulation when okay with medicine team -D/C planning-plan on d/c home when stable per medicine. Ortho will sign off at this time. Please contact us with any questions or concerns. She should follow up with Dr. Cole's office 12-14 days post operatively. She can call [phone] for an appointment Admission and Anticipated Discharge Date Admission Date: February 25, 2021 Subjective Patient resting in bed comfortably. Pain in shoulder well controlled. She has a 1-on-1, has had some confusion yesterday and overnight. Question of reaction to narcotics, possible urosepsis. Denies chest pain, sob, dizziness, n/v/d. Anxious to go home. Review of Systems Review of Systems: All systems reviewed & are unremarkable except as noted in Subjective Physical Exam Physical Exam: Left shoulder sling is intact, dressing c/d/i, incision c/d/i, no surrounding erythema. Hemovac on suction. Fingers mobile. distally n/v status and sensation are intact. Constitutional: well developed and well nourished; no acute distress Results & Data ([facility]) Vital Signs (Past 12 Hours) Vital Signs Temp Pulse Pulse Resp BP BP Pulse Ox 02/28/21 04:31 36.8 C 88 18 137/75 95 02/27/21 23:33 37.2 C 108 H 20 151/79 H 92 02/27/21 23:27 115 H 152/82 H 02/27/21 22:20 113 H 02/27/21 22:11 37.3 C 116 H 18 152/82 H 94 02/27/21 21:56 37.2 C 124 H 02/27/21 20:00 36.9 C 89 20 123/76 94 (1) Fracture of head of humerus Encounter type: initial encounter Fracture type: closed Laterality: left Qualified Code(s): S42.292A - Other displaced fracture of upper end of left humerus, initial encounter for closed fracture
[2021-02-28] MEDS: BUDESONIDE 0.5 MG/2 ML VIAL (PULMICORT) NEB SCH (07:23)
[2021-02-28] MEDS: ANASTROZOLE 1 MG TAB PO SCH (08:42)
[2021-02-28] MEDS: PANTOprazole 40 MG TAB PO SCH (08:42)
[2021-02-28] MEDS: NIFEdipine EXTENDED REL 30 MG TABCR PO SCH (08:42)
[2021-02-28] MEDS: MULTIVITAMIN TAB PO SCH (08:42)
[2021-02-28] MEDS: DOCUSATE SODIUM 100 MG CAP PO SCH (08:49)
--- NOTE | 2021-02-28 12:35 | Ultrasound Report ---
BILATERAL CAROTID DOPPLER STUDY HISTORY: Fall. Abnormal CT. lacunar infarct left basal ganglia COMPARISON: None. TECHNIQUE: Real-time, grayscale, and color Doppler sonography of the carotid arteries was performed. Imaging reviewed in the transverse and longitudinal planes. All measurements were calculated based on NASCET criteria. FINDINGS: Antegrade flow is seen in the bilateral vertebral arteries. The brachial pressures are hemodynamically similar. The peak systolic velocity within the right ICA is 68 cm/s. The right systolic ratio is 0.9. The peak systolic velocity within the left ICA is 84 cm/s. The left systolic ratio is 1.0. IMPRESSION: No hemodynamically significant stenosis seen within the carotid arteries. ACT 112: Negative or not required by law. Electronically signed by: Carroll Lopez M.D. 02/28/2021 12:34 PM
[2021-02-28] MEDS ORDERED: GADOBUTROL 65ML VIAL IV ONE (12:41)
--- NOTE | 2021-02-28 13:16 | Magnetic Resonance Report ---
Brain MRI WITH AND WITHOUT CONTRAST HISTORY: Possible left basal ganglia lacunar infarct. Abnormal CT. Fall. TECHNIQUE: Multiplanar multisequence MRI of the brain was performed both before and after the intrave nous administration of contrast. COMPARISON STUDY: Head CT 02/25/2021. FINDINGS: There is no mass, hematoma, midline shift, or acute infarct. The paranasal sinuses are vitaliy r. The mastoid air cells are clear. The ventricles and sulci demonstrate mild age-related involutiona l changes. Scattered foci of T2 hyperintensity seen within the periventricular and subcortical white matter are nonspecific but suggestive of mild microvascular ischemic changes. The major vascular flow voids at the skull base are well-maintained. There is a prominent perivascular space inferior to the left basal ganglia. No acute or chronic lacunar infarcts identified. IMPRESSION: 1. No acute intracranial abnormality. 2. Scattered foci of T2 hyperintensity seen within the periventricular and subcortical white matter a re nonspecific but favor microvascular ischemic change. 3. No acute or chronic lacunar infarct. ACT 112: Negative or not required by law. Electronically signed by: Carroll Lopez M.D. 02/28/2021 1:15 PM
--- NOTE | 2021-02-28 16:10 | Discharge Summary ---
Date of Service February 28, 2021 Admission HPI Per Admitting Provider This is a 70-year-old female who has significant past medical history of scleroderma, aortic valve stenosis, factor V Leiden heterozygote, asthma, history of bilateral breast cancer, GERD, history of GI bleed, hypothyroidism who presents ED after sustaining mechanical fall and subsequent left shoulder pain prior to arrival. Daughter is at bedside. She states she was outside going to feed cats when she was walking in the wet grass, slipped and fell on left shoulder. She states, "everything happened so fast and I could not get up." Her accredited farm manager's brought her to the ED. She complains of significant left shoulder pain. She denies any prior falls other than today. Typically she is very active and fosters many cats. She does have history of asthma and therefore occasionally get shortness of breath but denies any chest pain or BUSCH climbing one flight of stairs. She is fully vaccinated for COVID-19. Prior to today she was in her normal state of health. She is history of breast cancer which is since in remission and she takes Arimidex daily. She denies any fever, chills, sweats, lightheadedness, dizziness, syncope, chest pain, shortness breath, cough, URI symptoms, nausea, vomiting, abdominal pain, change in bowel or urinary habits. Typically she ambulates without assist device. Currently pain is 7 out of 10. She has a history of factor V Leiden and is currently on chronic Coumadin secondary to history of PE while on vacation in 2002. She has had no further recurrence. In ED patient remained hemodynamically stable. Imaging revealed a acute, comminuted left humeral neck fracture. Admission Exam Per Admitting Provider Constitutional: WD/WN, F, vitals as above, NAD, sitting up in bed, pleasant, conversing easily Head: Normocephalic, Atraumatic Eyes: PERRL, conjunctivae normal, anicteric sclerae ENMT: external ear and nose normal, oropharynx normal Neck: trachea midline, no thyromegaly normal visual inspection Respiratory: normal respiratory effort, lungs clear to auscultation, no wheeze, rales, rhonchi. Normal insp/exp effort, no accessory muscle use Cardiovascular: RRR, 2/6 AILYN pansystolic, best RUSB, no edema Vessels: no JVD or carotid bruit Chest: normal inspection of chest Abdomen: normal bowel sounds, soft, nontender, no hepatosplenomegaly Musculoskeletal: no cyanosis or clubbing, AROM x 3, LUE not tested given fracture but NVI distally Skin: no rashes, warm and dry normal turgor Neurologic: PERRL, EOMI, accommodation nl, no face palsy, no dysarthria CN's II-XI intact bilaterally and moves all extremities Psychiatric: A+Ox3, euthymic affect Lymphatic: no cervical or axillary lymphadenopathy : deferred Principal Diagnosis fall with displaced comminuted fracture, left proximal humerus neck and head including tuberosities s/p reversed totals shoulder arthroplasty including repair and bone grafting of the tuberosity fractures with biceps tenodesis (Dr. Cole) abnormal CT scan hospital-induced delirium, cannot rule out toxic encephalopathy 2/2 opiate use- resolved prior to discharge Discharge Exam CONSTITUTIONAL: WNWD, vitals stable, generally well-appearing EYES: normal conjunctivae, no scleral icterus ENT: external ear and nose normal, MMM RESPIRATORY: clear to auscultation bilaterally, no crackles, rales or wheezes, normal respiratory effort CARDIOVASCULAR: regular rate and rhythm, S1 and 2 heard without murmurs, gallops or rubs, no JVD, no peripheral edema GASTROINTESTINAL: soft, nontender, nondistended MUSCULOSKELETAL: strength 5/5 throughout, head is normocephalic and atraumatic SKIN: warm and dry NEUROLOGIC: CN 2-12 grossly intact, no sensory deficit, normal cognition, normal speech, no tremor. No gross focal deficits. PSYCHIATRIC: alert cooperative and oriented to person, place and time. Discharge Data Allergies Allergy/AdvReac Type Severity Reaction Status Date / Time oxycodone [From Percocet] AdvReac Mild confusion Verified 02/27/21 22:22 Consultations 02/25/21 12:47 ED Decision to Admit Stat 02/25/21 13:11 Consult Anesthesiology Routine Consult Orthopedic Surgery Routine 02/25/21 16:40 Consult Neurology Routine Procedures Performed Operation Date: 02/26/21 07:00 Actual Procedures p Left Fractured Reverse Total Shoulder Arthroplasty Cemented, Repair and Bone Grafting of Tuberosity Fractures, Biceps Tenodesis(Left) - Shakir Cole MD Ordered Studies Laboratory Results WBC 20.15 K/uL (4.8-10.8) H 02/28/21 01:53 RBC 4.31 M/uL (4.2-5.4) 02/28/21 01:53 Hgb 11.5 g/dL (12.0-16.0) L 02/28/21 01:53 Hct 35.7 % (37-47) L 02/28/21 01:53 MCV 82.8 fL (80-100) 02/28/21 01:53 MCH 26.7 pg (25-34) 02/28/21 01:53 MCHC 32.2 g/dL (32-36) 02/28/21 01:53 RDW Std Deviation 45.6 fL (36.4-46.3) 02/28/21 01:53 RDW Coeff of Mena 14.7 % (11.5-14.5) H 02/28/21 01:53 Plt Count 303 K/uL (130-400) 02/28/21 01:53 MPV 9.8 fL (7.4-10.4) 02/28/21 01:53 Immature Gran % (Auto) 0.3 % 02/28/21 01:53 Neut % (Auto) 83.4 % 02/28/21 01:53 Lymph % (Auto) 5.8 % 02/28/21 01:53 Sauk % (Auto) 10.5 % 02/28/21 01:53 Eos % (Auto) 0.0 % 02/28/21 01:53 Baso % (Auto) 0.0 % 02/28/21 01:53 Neut # (Auto) 16.80 K/uL (1.4-6.5) H 02/28/21 01:53 Lymph # (Auto) 1.17 K/uL (1.2-3.4) L 02/28/21 01:53 Sauk # (Auto) 2.11 K/uL (0.11-0.59) H 02/28/21 01:53 Eos # (Auto) 0.00 K/uL (0-0.5) 02/28/21 01:53 Baso # (Auto) 0.01 K/uL (0-0.2) 02/28/21 01:53 Immature Gran # (Auto) 0.06 K/uL (0.00-0.02) H 02/28/21 01:53 PT 11.4 Seconds (9.0-12.0) 02/26/21 08:12 INR 1.1 (0.9-1.1) 02/26/21 08:12 Sodium 141 mmol/L (136-145) 02/28/21 01:53 Potassium 3.7 mmol/L (3.5-5.1) 02/28/21 01:53 Chloride 108 mmol/L (98-107) H 02/28/21 01:53 Carbon Dioxide 29 mmol/L (21-32) 02/28/21 01:53 Anion Gap 4.0 (3-11) 02/28/21 01:53 BUN 9 mg/dl (7-18) 02/28/21 01:53 Creatinine 0.62 mg/dl (0.6-1.2) 02/28/21 01:53 Est Cr Clr Drug Dosing 88.2 ml/min 02/28/21 01:53 Est GFR ( Amer) 105.1 ml/min 02/28/21 01:53 Est GFR (Non-Af Amer) 90.7 ml/min 02/28/21 01:53 BUN/Creatinine Ratio 15.2 (10-20) 02/28/21 01:53 Glucose 133 mg/dl (70-99) H 02/28/21 01:53 Estimat Average Glucose 123 mg/dl 02/26/21 08:12 Hemoglobin A1c 5.9 % (4.5-5.6) H 02/26/21 08:12 Lactate 0.8 mmol/L (0.4-2.0) 02/28/21 01:53 Calcium 8.1 mg/dl (8.5-10.1) L 02/28/21 01:53 Magnesium 1.8 mg/dl (1.8-2.4) 02/27/21 07:36 Albumin 2.8 gm/dl (3.4-5.0) L 02/27/21 07:36 Triglycerides 42 mg/dl (0-150) 02/26/21 08:12 Cholesterol 169 mg/dl (0-200) 02/26/21 08:12 LDL Cholesterol, Calc 104 mg/dl 02/26/21 08:12 VLDL Cholesterol, Calc 8 mg/dl 02/26/21 08:12 HDL Cholesterol 57 mg/dl 02/26/21 08:12 Cholesterol/HDL Ratio 3 02/26/21 08:12 TSH 0.966 uIu/ml (0.300-4.500) 02/27/21 07:36 Urine Color Yellow 02/28/21 00:40 Urine Appearance Clear (Clear) 02/28/21 00:40 Urine pH 5.0 (4.5-7.5) 02/28/21 00:40 Ur Specific Emerson 1.016 (1.000-1.030) 02/28/21 00:40 Urine Protein Negative (Negative) 02/28/21 00:40 Urine Glucose (UA) Negative (Negative) 02/28/21 00:40 Urine Ketones 1+ (Negative) H 02/28/21 00:40 Urine Blood Negative (Negative) 02/28/21 00:40 Urine Nitrite Negative (Negative) 02/28/21 00:40 Urine Bilirubin Negative (Negative) 02/28/21 00:40 Urine Urobilinogen Negative (Negative) 02/28/21 00:40 Ur Leukocyte Esterase 1+ (Negative) H 02/28/21 00:40 Urine WBC (Auto) 10-30 /hpf (0-5) H 02/28/21 00:40 Urine RBC (Auto) 0-4 /hpf (0-4) 02/28/21 00:40 U Hyaline Cast (Auto) 1-5 /lpf (0-5) 02/28/21 00:40 U Epithel Cells (Auto) 20-30 /lpf (0-5) H 02/28/21 00:40 Urine Bacteria (Auto) Negative (Negative) 02/28/21 00:40 COVID-19 Eval Order Covid19 at [facility] 02/25/21 13:30 SARS-CoV-2 (PCR) NEGATIVE (Negative) 02/25/21 13:30 Blood Type A Negative 02/26/21 14:46 Antibody Screen NEGATIVE 02/26/21 14:[address] 02/25/21 10:01 CT head/brain wo con CLINICAL HISTORY: fall COMPARISON STUDY: No previous studies for comparison. TECHNIQUE: Axial CT of the brain is performed from the vertex to the skull base. IV contrast was not administered for this examination. A dose lowering technique was utilized adhering to the principles of ALARA. CT DOSE: 1363.67 mGy.cm FINDINGS: No acute intracranial hemorrhage, no midline shift or space occupying lesions are seen. Sánchez-white matter differentiation is preserved. Evaluation is slightly limited due to beam hardening and mild motion artifact. Diffuse atrophic changes of brain parenchyma are seen. Ventricles are midline, of normal size and configuration. There is lacunar infarct/prominent perivascular space is seen within left basal ganglia. There is no acute depressed skull fractures are seen. Visualized paranasal sinuses and mastoid air cells are patent and well-aerated. IMPRESSION: 1. No acute intracranial hemorrhage, no midline shift or space occupying lesions. 2. Prominent perivascular space or lacunar infarct within left basal ganglia. 3. Limited exam due to beam hardening and motion artifact ACT 112: Negative or not required by law. The above report was generated using voice recognition software. It may contain grammatical, syntax or spelling errors. Electronically signed by: Ashely Btucher DO 02/25/2021 11:11 AM Chest X-Ray 02/25/21 13:05 XR chest 1V portable CLINICAL HISTORY: pre op COMPARISON STUDY: No previous studies for comparison. FINDINGS: No pneumothorax. No pleural effusion. Small linear density seen at the left base and could represent small atelectasis or scarring. Diffuse reticular prominence of pulmonary interstitium is seen bilaterally. Cardiomediastinal silhouette is within normal limits in size. No significant pulmonary vascular congestion.. Aorta is calcified. Osseous structures: Osteopenia. Displaced fracture of the left proximal humerus. Degenerative changes of the spine. IMPRESSION: 1. Minimal atelectasis/scarring at the left base. 2. Atherosclerosis. ACT 112: Negative or not required by law. The above report was generated using voice recognition software. It may contain grammatical, syntax or spelling errors. Electronically signed by: Ashely Butcher DO 02/25/2021 1:[address] 02/25/21 15:01 CT shoulder LT wo con CT DOSE: 432.26 mGy.cm CLINICAL HISTORY: Left shoulder pain humeral fracture TECHNIQUE: Helical images were acquired in the transverse plane. Sagittal coronal reformatted images were acquired. A dose lowering technique was utilized adhering to the principles of ALARA. COMPARISON STUDY: X-ray study performed the same day FINDINGS: There are groundglass pulmonary opacities within the left upper lobe, and left lower lobe, likely infectious/inflammatory although a pulmonary con tusion could appear similar. There is also a 3 mm left lower lobe pulmonary nodule. A 3 month follow-up chest CT is recommended. There is a comminuted fracture of the left humeral head and neck. There is an 18 mm of medial displacement, and 19 mm of anterior displacement of the distal fragment. The fracture involves the greater tuberosity. There is minimal foreshortening/impaction at the fracture site. IMPRESSION: 1. Acute comminuted displaced fracture of the humeral head and neck with involvement of the greater tuberosity. There is 19 mm of maximal fracture displacement. There is no dislocation. 2. Nonspecific groundglass pulmonary opacities within the left upper lobe and left lower lobe likely infectious/inflammatory although a pulmonary contusion could appear similar. A 3 month follow-up chest CT is recommended. ACT 112: Positive. There are findings on this exam that require communication between the performing entity and the patient following Patient Test Result Information Act ([place] Act 112) guidelines. Electronically signed by: Guillaume Garcia M.D. 02/25/2021 4:31 PM Elbow X-Ray 02/25/21 15:23 XR elbow LT 2V HISTORY: 70 years-old Female r/o fx . Acute left elbow pain status post fall COMPARISON: None TECHNIQUE: 2 views of the left elbow FINDINGS: Limited exam secondary to positioning. Demineralized appearance of the bones. Mild marginal degenerative spurring of the elbow. No acute fracture, dislocation or large joint effusion. Soft tissue calcifications of the dorsal proximal mid forearm. Mild dorsal soft tissue swelling of the elbow and proximal forearm. IMPRESSION: Mild soft tissue swelling without acute fracture. ACT 112: Negative or not required by law. The above report was generated using voice recognition software. It may contain grammatical, syntax or spelling errors. Electronically signed by: Keith Flaherty M.D. 02/25/2021 3:46 PM Shoulder X-Ray 02/26/21 19:53 LEFT SHOULDER 2 VIEWS CLINICAL HISTORY: Postoperative examination. FINDINGS: 2 portable views of the left shoulder are obtained. The skeletal structures are osteopenic. A left shoulder arthroplasty is in near-anatomic alignment. There is a large displaced bony fragment along the proximal aspect of the arthroplasty. No additional findings are concerning for acute fracture. The acromioclavicular joint appears maintained. Skin clips, a surgical drain, soft tissue swelling, and subcutaneous venous gas overlying the left shoulder are expected postoperative changes . The left lung parenchyma is clear as imaged. IMPRESSION: 1. There is a large displaced bony fragment along the proximal aspect of the arthroplasty. 2. No additional findings are concerning for acute fracture. Electronically signed by: Crow Verde M.D. 02/26/2021 8:28 PM Carotid Doppler Study 02/28/21 11:00 BILATERAL CAROTID DOPPLER STUDY HISTORY: Fall. Abnormal CT. lacunar infarct left basal ganglia COMPARISON: None. TECHNIQUE: Real-time, grayscale, and color Doppler sonography of the carotid arteries was performed. Imaging reviewed in the transverse and longitudinal planes. All measurements were calculated based on NASCET criteria. FINDINGS: Antegrade flow is seen in the bilateral vertebral arteries. The brachial pressures are hemodynamically similar. The peak systolic velocity within the right ICA is 68 cm/s. The right systolic ratio is 0.9. The peak systolic velocity within the left ICA is 84 cm/s. The left systolic ratio is 1.0. IMPRESSION: No hemodynamically significant stenosis seen within the carotid arteries. ACT 112: Negative or not required by law. Electronically signed by: Carroll Lopez M.D. 02/28/2021 12:34 PM Brain MRI 02/28/21 14:43 Brain MRI WITH AND WITHOUT CONTRAST HISTORY: Possible left basal ganglia lacunar infarct. Abnormal CT. Fall. TECHNIQUE: Multiplanar multisequence MRI of the brain was performed both before and after the intravenous administration of contrast. COMPARISON STUDY: Head CT 02/25/2021. FINDINGS: There is no mass, hematoma, midline shift, or acute infarct. The paranasal sinuses are clear. The mastoid air cells are clear. The ventricles and sulci demonstrate mild age-related involutional changes. Scattered foci of T2 hyperintensity seen within the periventricular and subcortical white matter are nonspecific but suggestive of mild microvascular ischemic changes. The major vascular flow voids at the skull base are well-maintained. There is a prominent perivascular space inferior to the left basal ganglia. No acute or chronic lacunar infarcts identified. IMPRESSION: 1. No acute intracranial abnormality. 2. Scattered foci of T2 hyperintensity seen within the periventricular and subcortical white matter are nonspecific but favor microvascular ischemic change. 3. No acute or chronic lacunar infarct. ACT 112: Negative or not required by law. Electronically signed by: Carroll Lopez M.D. 02/28/2021 1:15 PM Hospital Course (1) Fracture of neck of left humerus: The patient is a 70-year-old female who sustained a mechanical fall and subsequent left humeral fracture. X-rays in the ER found that she had a proximal humerus fracture that was displaced. She was admitted to the hospitalist service and [facility] was consulted. She subsequently underwent a left fractured reverse total shoulder arthroplasty cemented, repair and bone grafting of tuberosity fractures, biceps tenodesis on the left by Dr. Shakir Cole on 02/26/21. Additionally, her fall prompted a CT of the brain which was found to have an abnormality. The reading stated perivascular space versus lacunar infarct within the left basal ganglia. The patient had no strokelike symptoms and neurology was consulted. She notably has a history of atrial fibrillation and is on Coumadin with no history of stroke or recent symptoms suggestive of a transient ischemic attack. A repeat MRI was recommended and revealed no acute intracranial abnormality, and no acute or chronic lacunar infarct. Scattered foci of T2 hyperintensity were seen within the periventricular and subcortical white matter which were nonspecific but favored microvascular ischemic change. For this reason a baby aspirin was added to her home anticoagulation regimen, and follow-up with neurology was recommended as outpatient nonurgently. A carotid ultrasound revealed no hemodynamically significant stenosis seen within the carotid arteries. She continued to recover well postoperatively and Coumadin was restarted again at time of discharge. Of note she had a white blood cell count of 20 K up from 14 K on admission and was started on cefepime for concern of possible UTI/sepsis. This was started by the overnight physician who was clinically noting hospital- acquired delirium. She had also had Percocet which could have been contributing to her delirium, a possible toxic encephalopathy. The following morning she was recovered in her mental status was completely at baseline, as verified by her accredited farm manager and family. The patient was very uncomfortable staying an additional night in the hospital and was cleared by orthopedics to discharge home. As she was stable, had no neurologic deficit, pain was controlled on oral medication, and her brain MRI revealed no acute abnormalities, she was discharged in stable condition for continued convalescence at home. Her urine specimen did grow Gardnerella-like bacilli at 40,000 CFU's, which does not require antibiotic treatment. (2) Abnormal head CT: Total Time Total Time Spent Total Time Spent (In Minutes): 60 Total Time Includes: Examination of the Patient, Discharge Planning, Medication Reconciliation and Communication With Other Providers Discharge Plan Discharge Items Patient Disposition: Home - Home Health Services Reason For Visit: L HUMERAL NECK FRACTURE Discharge Diagnosis: fall with displaced comminuted fracture, left proximal humerus neck and head including tuberosities s/p reversed totals shoulder arthroplasty including repair and bone grafting of the tuberosity fractures with biceps tenodesis (Dr. Cole) hospital-induced delirium, cannot rule out toxic encephalopathy 2/2 opiate use- resolved prior to discharge Condition on Discharge: Good Activity: Resume your previous activity Non-emergency contact: Primary Care Provider and Surgeon Call non-emergency contact if: you have any medication questions, your symptoms worsen, your pain is not controlled, your pain is worsening, your pain is unusual for you, your pain is concerning for you, you have a fever, your wound has increased drainage and your wound pain has increased Follow-up/Referrals: Gayle Clay M.D. [Primary Care Provider] - Diet: Regular Addtl Attending Provider Instructions: Please take all medications as instructed on discharge list below. Your brain MRI did not reveal evidence of a stroke, however, there is microvascular disease present. Baby aspirin daily (81mg) is recommended to take in addition to your coumadin with a Neurology follow-up in 4-6 weeks to discuss how you are doing, and review a long-term treatment plan. Please restart your coumadin at your current home dosing and continue to check INR frequently with your anticoagulation clinic ([facility] may also send this lab to your primary care physician for review and adjustment of warfarin as needed). It is recommended that you follow-up with your surgeon (see instructions below). It is recommended that you follow-up with your primary care provider in one week to ensure you are still doing well after discharge and that you are handling the medications and your post-operative recovery well. It was a pleasure taking care of you! Please call if you have any questions or problems. You can reach a [facility] hospitalist on duty at [facility] 24 hours a day by calling [phone]. Take care of yourself. Natalie Godwin DO [facility] Hospitalist Addtl Emblem Drawer In Provider Instructions: ACTIVITY RECOMMENDATIONS: SELF CARE INSTRUCTIONS AFTER TOTAL SHOULDER ARTHROPLASTY REVERSE A. You may do daily exercises as taught in physical therapy while in hospital. No lifting with the operative arm. B. You are to wear your sling/immobilizer at all times EXCEPT when performing your daily exercises and for hygiene purposes. C. You may perform dry, daily dressing changes. Please keep your incision covered. You may shower 48 hours after surgery. Do not apply soap or any ointment/lotions directly over incision. Do not soak incision in bath tub/swimming pool. D. You may use ice as needed to operative shoulder. SPECIAL CARE INSTRUCTIONS: VERY IMPORTANT TO READ AND REVIEW A. There are a few signs you need to watch for after you are home. Call [facility] at [phone] if you experience any of the followin. Increased severe shoulder pain. Some pain is expected especially when you exercise. 2. Increased swelling in you shoulder or arm; pain or swelling in either upper extremity. 3. Any fluid drainage from the incision. 4. Shortness of breath or chest pain. B. Please call [facility] at [phone] if you have any questions or concerns about your operation or recovery. C. Call your physician if: 1. Temperature is greater than 101 degrees (F). 2. Pain is not relieved by prescribed pain medications. 3. Increase drainage or redness from incision. 4. Unanswered questions or concerns. FOLLOW UP VISIT: Please call [facility] at [phone] to schedule a follow up appointment with Dr. Cole or his PA in 12-14 days from your surgery date. Pending Studies at Discharge: No Stand-Alone Forms: My [facility] Medications and DC Order Prescriptions: New aspirin [Aspirin Low Dose] 81 mg tablet,delayed release (DR/EC) 81 mg PO DAILY Qty: 90 RF: 1 Continued alendronate 70 mg tablet 70 mg PO SA RF: 0 pantoprazole 20 mg tablet,delayed release (DR/EC) 20 mg PO DAILY RF: 0 levothyroxine 75 mcg tablet 75 mcg PO DAILY RF: 0 lisinopril 10 mg tablet 10 mg PO DAILY RF: 0 warfarin [Jantoven] 5 mg tablet 5 mg PO SUMOTUTHFRSA RF: 0 nifedipine 60 mg tablet extended release 60 mg PO DAILY RF: 0 budesonide 1 mg/2 mL suspension for nebulization 1 mg inhalation DAILY RF: 0 anastrozole [Arimidex] 1 mg Tablet 1 mg PO DAILY RF: 0 warfarin 5 mg Tablet 7.5 mg PO WE RF: 0 Discharge Orders: Discharge Order (Routine); Ordered 02/28/21 Ordered By: Natalie Cox/Other Patient Handouts: Fall Prevention Assessing Risk Admission Data Admit Date/Time: 02/25/21 13:11 Attending Provider: Natalie Godwin Admit Provider: Elisha Johnson Primary Care Provider: Gayle Clay Other Providers: Elisha Johnson ; Charleen Trimble ; Oswaldo Hidalgo ; Tiffanie Green Other Interventions: Discharge Summary Assessment (RN) Last Done: 02/28/21 16:48 Home Health Attestation I certify that this patient is under my care and that I, or a physicians physician assistant psychiatry working with me, had a face to-face encounter that meets the home health [id number] encounter requirements with this patient. The encounter with the patient was in whole, or in part, for the following medical condition, which is the primary reason for home health care (list medical condition): fall with displaced comminuted fracture, left proximal humerus neck and head including tuberosities s/p reversed totals shoulder arthroplasty including repair and bone grafting of the tuberosity fractures with biceps tenodesis (Dr. Cole) hospital-induced delirium, cannot rule out toxic encephalopathy 2/2 opiate use- resolved prior to discharge I certify that, based on my findings, the following services are medically necessary home health services: Home nursing care Frequent Home INR monitoring My clinical findings support the need for the above services because: Further, I certify that my clinical findings support that this patient is homebound (i.e. absences from home require considerable and taxing effort and are for medical reasons or alevism services or infrequently or of short duration when for other reasons) because: Certification for Home Health Services: Based on the above findings, I certify that this patient is confined to the home and needs intermittent snf care, physical therapy and/or speech therapy or continues to need occupational therapy. The patient is under my care, and I have initiated the establishment of the plan of care. This patient will be followed by a physician who will periodically review the plan of care.
== END 2021-02-28 19:30 | disposition home health service (06) | DRG 483 ==
LOC: ED 09:40 → 2W 13:11 → SUATTDRO 13:11 → 2W 16:36